=== PATIENT | male | born 1960 | race Hispanic/Latino ===

== ENCOUNTER → 2020-03-06 | Outpatient (CLI) | payer BC, OTHER ==
[~2020-03-06] MED LIST: DIATRIZOATE MEGL/DIATRIZOA SOD 30 ML BTL PO ONE; IOPAMIDOL 370 MG/ML 200 ML INFUS..BTL INJ ONE; SODIUM CHLORIDE 0.9% 50ML 50 ML ONE
--- NOTE | 2020-03-06 17:10 | Diagnostic Imaging Report ---
EXAM: CHEST 2 VIEWS DATE: 03/06/2020 4:30 PM INDICATION: Colon cancer COMPARISON: None FINDINGS: The trachea is midline. The lungs are symmetrically expanded without evidence for large focal consolidation, pneumothorax, or significant pleural effusion. The cardiomediastinal silhouette and pulmonary vasculature are within normal limits. Atherosclerotic calcifications are noted within the thoracic aorta. No acute osseous abnormality is identified. The surrounding soft tissues are unremarkable. IMPRESSION: No acute cardiopulmonary process identified. Signed by: Dr. Evaristo Tobin MD on 03/06/2020 5:06 PM
[2020-03-06 17:17] LABS: BASOPHILS # (AUTO) 0.1 (0.0-0.1); EOSINOPHILS # (AUTO) 0.3 (0.0-0.4); EOSINOPHILS % 4.3 % (0.0-6.0); HEMATOCRIT 46.5 % (38.2-49.6); HEMOGLOBIN 14.8 g/dL (14.0-18.0); LYMPHOCYTES # (AUTO) 1.8 (1.0-3.2); LYMPHOCYTES % 23.5 % (18.0-39.1); MEAN CORPUSCULAR HEMOGLOBIN 26.7 pg (28-32); MEAN CORPUSCULAR HGB CONC 31.8 g/dL (31-35); MEAN CORPUSCULAR VOLUME 83.9 fL (81-99); MONOCYTES # (AUTO) 0.9 (0.2-0.8); MONOCYTES % 11.6 % (4.4-11.3); NEUTROPHILS # (AUTO) 4.5 (2.1-6.9); NEUTROPHILS % 59.1 % (38.7-80.0); PLATELET COUNT 369 x10e3/uL (140-360); RED BLOOD COUNT 5.54 x10e6/uL (4.3-5.7); RED CELL DISTRIBUTION WIDTH 14.7 % (11.7-14.4)
[2020-03-06 17:28] LABS: INR 0.95; PROTHROMBIN TIME 13.2 seconds (11.9-14.5)
[2020-03-06 17:29] LABS: PARTIAL THROMBOPLASTIN TIME 31.5 seconds (23.8-35.5)
[2020-03-06 17:34] LABS: ANION GAP 15.9 mmol/L (8-16); BLOOD UREA NITROGEN 9 mg/dL (7-26); BUN/CREATININE RATIO 10 (6-25); CALCIUM 9.6 mg/dL (8.4-10.2); CARBON DIOXIDE 25 mmol/L (22-29); CHLORIDE 101 mmol/L (98-107); CREATININE, SERUM 0.94 mg/dL (0.72-1.25); EST GLOMERULAR FILTRATION RATE > 60 ML/MIN (60-); GLUCOSE 80 mg/dL (74-118); POTASSIUM 3.9 mmol/L (3.5-5.1); SODIUM 138 mmol/L (136-145)
--- NOTE | 2020-03-06 19:34 | Diagnostic Imaging Report ---
EXAM: CT Abdomen and Pelvis WITH contrast INDICATION: Metastatic colon cancer with bowel obstruction. COMPARISON: CT abdomen/pelvis dated 12/09/2019. MRI of the abdomen on 12/11/2019. TECHNIQUE: Abdomen and pelvis were scanned utilizing a multidetector helical scanner from the lung base to the pubic symphysis after administration of IV contrast. Coronal and sagittal reformations were obtained. Routine protocol was performed. Scan was performed when during portal venous phase. IV CONTRAST: 100 mL of Isovue 370 ORAL CONTRAST: None COMPLICATIONS: None RADIATION DOSE: Total DLP: 931.51 mGy*cm Estimated effective dose: (DLP x 0.015 x size factor) mSv CTDIvol has been reviewed. It is below the limits set by the Radiation Protocol Committee (RPC). Dose modulation, iterative reconstruction, and/or weight based adjustment of the mA/kV was utilized to reduce the radiation dose to as low as reasonably achievable. FINDINGS: LINES and TUBES: None. LOWER THORAX: Unremarkable HEPATOBILIARY: There are multiple hypodense, mildly enhancing irregular shaped masses in the liver. The largest in the right hepatic lobe measures approximately 8.0 x 6.0 cm. Another located in the caudate lobe measures approximately 7.5 x 4.7 cm. Additional smaller nodules are seen throughout the liver, for instance one on the lateral aspect of the right hepatic lobe which measures 2.7 x 2.8 cm. No biliary ductal dilation. GALLBLADDER: No radio-opaque stones or sludge. No wall thickening. SPLEEN: No splenomegaly. PANCREAS: No focal masses or ductal dilatation. ADRENALS: No adrenal nodules KIDNEYS/URETERS: Kidneys enhance symmetrically. No hydronephrosis. There is a small exophytic hypodensity in the midpole of the right kidney, too small to characterize by CT. No stones. GI TRACT: There is circumferential wall thickening of the distal sigmoid colon with pericolonic fat stranding and multiple prominent adjacent lymph nodes, the largest measuring up to 1.2 cm (series 2 image 71). The remainder of the large bowel and small bowel are normal. No abnormal distention or evidence of bowel obstruction. Appendix is normal. PELVIC ORGANS/BLADDER: Unremarkable. LYMPH NODES: There are multiple prominent mayur hepatis and paracaval lymph nodes. There are multiple enlarged lymph nodes in the thickened sigmoid colon described above. VESSELS: The distal thoracic aorta takes a tortuous course. The abdominal aorta and its major abdomen and pelvic branches have normal enhancement with mild atherosclerotic calcification. PERITONEUM / RETROPERITONEUM: No free air or fluid. BONES: Unremarkable. SOFT TISSUES: Unremarkable. IMPRESSION: 1. Circumferential wall thickening of the distal sigmoid colon which likely represents area of known colon cancer. Adjacent pericolonic fat stranding likely reflects reactive changes. Prominent mesenteric lymph nodes, mayur hepatis and paracaval lymph nodes likely reflect metastasis. No evidence of bowel obstruction. 2. Multiple hypodense, mildly enhancing irregular shaped masses in the liver which likely represent metastatic lesions. Signed by: Tristin Finnegan MD on 03/06/2020 7:31 PM
== END ==
LOC: CT 16:22
PROVIDERS: ATTEND Surgery
DX: C78.5 Secondary malignant neoplasm of large intestine and rectum (principal); K56.609 Unspecified intestinal obstruction, unspecified as to partial versus complete obstruction
CPT/HCPCS: 36415; 71046; 74177; 80048; 85025; 85610; 85730; 93005; Q9967

== ENCOUNTER 2020-03-18 05:52 | Inpatient (IN) | payer BC, OTHER ==
[~2020-03-18] VITALS: Ht 182.9 cm; Wt 135.8 kg
[~2020-03-18 05:52] MED LIST changes: +AMLODIPINE BESYL5 MG PO; -DIATRIZOATE MEGL/DIATRIZOA SOD 30 ML BTL PO ONE; +ESIDRIX25 MG PO; -IOPAMIDOL 370 MG/ML 200 ML INFUS..BTL INJ ONE; +LEVOTHYROXINE50 MCG PO; +LIPITOR10 MG PO; +LOSARTAN POTAS100 MG PO; +METFORMIN HCL500 MG PO; -SODIUM CHLORIDE 0.9% 50ML 50 ML ONE
--- NOTE | 2020-03-18 07:10 | NUR ---
SPIRITUAL CARE - Pre-Surgery Assessment: Pt in bed. Pt's at bedside. Pt reported supportive attention from family and friends. Intervention: [employer]ing Services Project Manager provided pastoral presence, hospitality, and sympathetic listening. Acquainted pt with availability of sanitation lead while hospitalized. Outcome: Pt expressed appreciation for visit. No need for follow up indicated at this time. [facility] Spiritual [facility] Department O: [phone]
[2020-03-18] MEDS ORDERED: ONDANSETRON HCL INJ 2MG/ML 2ML 2 MG/ML VIAL IV PRN (12:00)
[2020-03-18] MEDS: SODIUM CHLORIDE 0.9% 250ML IRRIG IR SCH ×3 (12:00→19:57)
[2020-03-18] MEDS ORDERED: KETOROLAC TROMETHAMINE 30 MG/ML VIAL IV PRN (12:00)
[2020-03-18] MEDS ORDERED: ACETAMINOPHEN 1000 MG/100 ML IV PRN (12:00)
[2020-03-18] MEDS ORDERED: NALOXONE HCL INJ 0.4 MG/ML AMP IV PRN (12:00)
[2020-03-18] MEDS: INSULIN REGULAR, HUMAN 100 UNIT/1 ML 3ML VIAL SQ SCH ×2 (12:00→18:00)
[2020-03-18] MEDS ORDERED: FENTANYL CITRATE/PF 100MCG/2 ML INJ ONE ×2 (12:07→19:03)
[2020-03-18] MEDS: HYDROMORPHONE 0.2MG/ML-SOD CHL 30ML PCA SYRINGE IV PRN (12:10)
--- OUTSIDE RECORDS SUMMARY | 2020-03-18 12:55 | XMS REPORT | Continuity of Care Document ---
Author Author Faviola Mati [facility] Address Unknown Phone Unavailable Care Team Providers Care Information Support Project Manager Name Role Phone Avanz[employer] Information [place] Unavailable Un available Problems Problem Status Onset Date Classification Date Reported Comments Source LOW BP Active 12/09/2019 [facility] FEVER, HYPOTENSION, ELENITA, SINUS TACHYCARD Active 12/09/2019 [facility] FEVER, UNSPECIFIED Active [facility] HYPOTENSION, UNSPECIFIED Active [facility] ACUTE KIDNEY FAILURE, UNSPECIFIED Active [facility] Medications Medication Details Route Status Patient Instructions Ordering Provider Order Date Source cefTRIAXone 2 g injection 2 gm , IV, Q24H, X 18 day, # 18 ea, 0 Refill(s), other Active 12/20/2019 [facility] Miralax Notes: Dissolve in 8 o z of water or juice. (Same as: Miralax) No Longer Active 12/20/2019 [facility] Rocephin + sterile water 20 mL Notes: (Same As: Rocephin). Use with 100 mL NS and infuse over 30 min MEDICATION WASTE Product Size: 2000 mg Product Wasted: ___ mg Inactive 12/19/2019 [facility] POLYETHYLENE GLYCOL 3350 142 MG/ML Oral Solution [Miralax] 17 gm, PO, Daily, PRN Constipation, # 52 7 gm, 0 Refill(s), [id number] Active 12/19/2019 [facility] Acetaminophen 300 MG / Codeine Phosphate 30 MG Oral Tablet 1 tab, PO, Q6H, PRN Pain Score 7-10, X 3 day, # 12 tab, 0 Refill(s) Active 12/19/2019 [facility] Lisinopril Notes: (Same as: Pr inivil, Zestril) No Longer Active 12/18/2019 [facility] magnesium citrate 58.2 MG/ML Oral Solution Notes: (Same as: Citrate of Magnesia) Concentration: 1.745 gm / 30 mL Inactive 12/16/2019 [facility] Docusate 100 mg, Route: PO, BI D, Dosing Weight 145.455, kg, Start date: 12/16/19 9:00:00 CDT, Duration: 30 day, Stop date: 01/14/20 17:00:00 CDT No Longer Active 12/16/2019 [facility] Amlodipine Notes: (Same as: No rvasc) Inactive 12/15/2019 [facility] Ceftriaxone Notes: (Same As: R ocephin). Use with 100 mL NS and infuse over 30 min MEDICATION WASTE Product Size: 2000 mg Product Wasted: ___ mg No Longer Active 12/14/2019 [facility] Hydralazine Notes: (Same as: A presoline) Push over 5 minutes No Longer Active 12/12/2019 [facility] Amlodipine Notes: (Same as: No rvasc) No Longer Active 12/12/2019 [facility] Ativan Notes: (Same as: Ativan) Inactive 12/11/2019 [facility] Zosyn Notes: (Same as: Zosyn) Dosing based on Piperacillin component MEDICATION WASTE Product Size: 3375 mg Product Wasted: ___ mg No Longer Active 12/11/2019 [facility] Rocephin + sterile water 10 mL Notes: (Same As: Rocephin). Use with 100 mL NS and infuse over 30 min MEDICATION WASTE Product Size: 1000 mg Product Wasted: ___ mg No Longer Active 12/11/2019 [facility] Dulcolax Laxative 10 mg, 2 tab , Route: PO, Drug form: ECTAB, ONCE, Dosing Weight 145.455, kg, Start date: 12/10/19 21:00:00 CDT, Stop date: 12/10/19 21:00:00 CDT, 0 Inactive 12/11/2019 [facility] Docusate Notes: (Same as: Cola ce) (Do Not Crush) No Longer Active 12/11/2019 [facility] sennosides, SENIOR CARE Notes: (Same a s: Senokot) No Longer Active 12/11/2019 [facility] Acetaminophen 325 MG / Hydrocodone Александр trate 5 MG Oral Tablet [Campbell 5/325] Notes: (Same as: Campbell 325/5) Do not ex ceed 4gm/day of acetaminophen. No Longer Activ e 12/10/2019 [facility] Morphine Notes: (Same as:MORPh ine Sulfate) No Longer Active 12/10/2019 [facility] Cipro Notes: Do not refrigerate No Longer Active 12/10/2019 [facility] Allopurinol Notes: (Same as: Z yloprim) No Longer Active 12/10/2019 [facility] atorvastatin Notes: (Same as: Lipitor) No Longer Active 12/10/2019 [facility] Fenofibrate 48 MG Oral Tablet Notes: (Same as: Tricor) No Longer Active 12/10/2019 [facility] Levothroid Notes: Take 1 hour before or 2 hours after meal; Enteral feeds may interefere with the absorption of this medication.(Same as:Levothroid, Synthroid) No Longer Active 12/10/2019 [facility] Enoxaparin Notes: (Same as: Lo venox) No Longer Active 12/10/2019 [facility] Dextrose 50% Syringe (D50W) 12 .5 gm, 25 mL, Route: IVP, Drug Form: INJ, Dosing Weight 145.455, kg, PRN, PRN Blood Glucose Results, Start date: 12/10/19 0:36:00 CDT, Duration: 30 day, Stop date: 01/09/20 0:35:00 CDT, 0 No Longer Active 12/10/2019 [facility] Glucagon 1 mg, Route: IM, Drug form: PDR/INJ, PRN, Dosing Weight 145.455, kg, PRN Blood Glucose Results, Start date: 12/10/19 0:36:00 CDT, Duration: 30 day, Stop date: 01/09/20 0:35:00 CDT, 0 No Longer Active 12/10/2019 [facility] Insulin Lispro Notes: (Same as : Humalog) Roll in palms of hands gently; Do not shake vigorously. WASTE: F/P - Black; E - Municipal Trash Bin Stable for 28 days at room temperature. Expires in days from Date No Longer Active 12/10/2019 [facility] Triamcinolone Acetonide 1 MG/ML Topical Cream Notes: (triamcinolone acetonide 0.1% 15 gm top CRM) (Same As: Kenalog) No Longer Active 12/10/2019 [facility] Sodium Chloride 0.9% IV 1,000 mL 1,000 mL, Rate: 125 ml/hr, Infuse over: 8 hr, Route: IV, Dosing Weight 145.455 kg, Total Volume: 1,000, Start date: 12/10/19 0:33:00 CDT, Duration: 30 day, Stop date: 01/09/20 0:32:00 CDT, 2.75, m2, 0 No Longer Active 12/10/2019 [facility] Saline Flush 0.9% Notes: (Same as: BD Posiflush) No Longer Active 12/10/2019 [facility] Metronidazole Notes: (Same as: Ulises) Avoid alcohol. No Longer Active 12/10/2019 [facility] NS (Bolus) IV 1,000 mL, 1,000 ml/hr, Infuse Over: 1 hr, Route: IV, 1,000, Drug form: INJ, ONCE, Priority: STAT, Dosing Weight 145.455 kg, Start date: 12/10/19 0:28:00 CDT, Stop date: 12/10/19 0:28:00 CDT, 0 Inactive 12/10/2019 [facility] Ondansetron Notes: (Same as: [place] fuentes) MEDICATION WASTE Product Size: 4 mg Product Wasted: ___ mg No Longer Active 12/10/2019 [facility] Acetaminophen Notes: Do not ex ceed 4 gm/day. (Same as: Tylenol) No Longer Active 12/10/2019 [facility] Metronidazole Notes: (Same as: Ulises) Avoid alcohol. No Longer Active 12/10/2019 [facility] Azithromycin Notes: (Same As: Zithromax IV) No Longer Active 12/10/2019 [facility] Ceftriaxone Notes: (Same As: Harry barrow). Use with 100 mL NS and infuse over 30 min MEDICATION WASTE Product Size: 1000 mg Product Wasted: ___ mg No Longer Active 12/10/2019 [facility] Zofran 4 mg, Route: IVP, Drug form: INJ, ONCE, Dosing Weight 145.455, kg, Priority: STAT, Start date: 12/09/19 22:54:00 CDT, Stop date: 12/09/19 22:54:00 CDT Inactive 12/10/2019 [facility] Acetaminophen 1,000 mg, 2 tab, Route: PO, Drug form: TAB, ONCE, Dosing Weight 145.455, kg, Start date: 12/09/19 22:51:00 CDT, Stop date: 12/09/19 22:51:00 CDT, 0 No Longer Active 12/10/2019 [facility] Tylenol 1,000 mg, 2 tab, Route : PO, Drug form: TAB, ONCE, Dosing Weight 145.455, kg, Priority: STAT, Start date: 12/09/19 22:45:00 CDT, Stop date: 12/09/19 22:45:00 CDT, 0 Inactive 12/10/2019 [facility] NS (Bolus) IV 1,000 mL, 1,000 ml/hr, Infuse Over: 1 hr, Route: IV, 1,000, Drug form: INJ, ONCE, Priority: STAT, Dosing Weight 145.455 kg, Start date: 12/09/19 22:32:00 CDT, Stop date: 12/09/19 22:32:00 CDT, 0 Inactive 12/10/2019 [facility] NS 1,000 mL 1,000 mL, Rate: 10 0 ml/hr, Infuse over: 10 hr, Route: IV, Dosing Weight 145.455 kg, Total Volume: 1,000, Start date: 12/09/19 20:16:00 CDT, Duration: 30 day, Stop date: 01/08/20 20:15:00 CDT, 2.75, m2, 0 No Longer Active 12/10/2019 [facility] Saline Flush 0.9% Notes: (Same as: BD Posiflush) No Longer Active 12/09/2019 [facility] Sodium Chloride 0.9% (Bolus) IV 1,000 mL, 1000 ml/hr, Infuse Over: 1 hr, Route: IV, 1,000, Drug form: INJ, ONCE, Priority: STAT, Dosing Weight 145.455 kg, Start date: 12/09/19 18:51:00 CDT, Stop date: 12/09/19 18:51:00 CDT, 0 Inactive 12/09/2019 [facility] Metformin hydrochloride 500 MG Oral Tablet 500 mg = 1 tab, PO, Daily, 0 Refill(s) Active 12/09/2019 [facility] Fenofibrate 48 MG Oral Tablet 48 mg = 1 tab, PO, Daily, 0 Refill(s) Active 12/09/2019 [facility] allopurinol 300 mg oral tablet 300 mg = 1 tab, PO, Daily, 0 Refill(s) Active 12/09/2019 [facility] Triamcinolone Acetonide 1 MG/ML Topical Cream 1 appl, TOP, BID, PRN Rash, 0 Refill(s) Active 12/09/2019 [facility] Levothroid 50 mcg (0.05 mg) oral tablet 50 microgram = 1 tab, PO, Daily, 0 Refill(s) Active 12/09/2019 [facility] atorvastatin 40 mg oral tablet 40 mg = 1 tab, PO, Daily, 0 Refill(s) Active 12/09/2019 [facility] amLODIPine 5 mg oral tablet 5 mg = 1 tab, PO, Daily, 0 Refill(s) Active 12/09/2019 [facility] losartan 50 mg oral tablet See Instructions, 1 tab PO Daily, 0 Refill(s) Active 12/09/2019 [facility] hydrochlorothiazide 12.5 mg oral tablet 12.5 mg = 1 tab, PO, Daily, 0 Refill(s) Active 12/09/2019 [facility] Allergies, Adverse Reactions, Alerts No Known Medication Allergies Immunizations No Data Provided for This Section Results Order Name Results Value Reference Range Date Interpretation Comments Source CHEM PANEL LDH 329 98 - 192 12/19/2019 [facility] CHEM PANEL Glucose Lvl 87 70 - 99 12/19/2019 [facility] CHEM PANEL BUN 9 7 - 22 12/19/2019 [facility] CHEM [facility] Creatinine Lvl 0.80 0.50 - 1.40 12/19/2019 [facility] CHEM PANEL Sodium Lvl 139 135 - 145 12/19/2019 [facility] CHEM PANEL Potassium Lvl 4.0 3.5 - 5.1 12/19/2019 [facility] CHEM PANEL Chloride Lvl 107 95 - 109 12/19/2019 [facility] CHEM PANEL CO2 27 24 - 32 12/19/2019 [facility] CHEM PANEL Calcium Lvl 9.0 8.5 - 10.5 12/19/2019 [facility] CHEM PANEL AGAP 9.0 10.0 - 20.0 12/19/2019 [facility] CHEM PANEL eGFR 99 12/19/2019 Result Comment: The eGFR is calculated using the CKD-EPI formula. In most young, healthy individuals the eGFR will be >90 mL/min/1.73m2. The eGFR declines with age. An eGFR of 60-89 may be normal in some populations, particularly the elderly, for whom the CKD-EPI formula has not been extensively validated. Use of the eGFR is not recommended in the following populations:

Individuals with unstable creatinine concentrations, including patients and those with serious co-morbid conditions.

Patients with extremes in muscle mass or diet.

The data above are obtained from the National Kidney Disease Education Program (NKDEP) which additionally recommends that when the eGFR is used in patients with extremes of body mass index for purposes of drug dosing, the eGFR should be multiplied by the estimated BMI. [facility] CHEM PANEL Magnesium Lvl 2.4 1.8 - 2.4 12/19/2019 [facility] HEMATOLOGY Hgb 13.9 14.0 - 18.0 12/19/2019 [facility] HEMATOLOGY Hct 42.9 42.0 - 54.0 12/19/2019 [facility] CHEM PANEL Glucose Lvl 92 70 - 99 12/18/2019 [facility] CHEM PANEL BUN 10 7 - 22 12/18/2019 [facility] CHEM PANEL Creatinine Lvl 0.85 0.50 - 1.40 12/18/2019 [facility] CHEM PANEL Sodium Lvl 138 135 - 145 12/18/2019 [facility] CHEM PANEL Potassium Lvl 3.9 3.5 - 5.1 12/18/2019 [facility] CHEM PANEL Chloride Lvl 105 95 - 109 12/18/2019 [facility] CHEM PANEL CO2 27 24 - 32 12/18/2019 [facility] CHEM PANEL Calcium Lvl 8.8 8.5 - 10.5 12/18/2019 [facility] CHEM PANEL AGAP 9.9 10.0 - 20.0 12/18/2019 [facility] CHEM PANEL eGFR 97 12/18/2019 Result Comment: The eGFR is calculated using the CKD-EPI formula. In most young, healthy individuals the eGFR will be >90 mL/min/1.73m2. The eGFR declines with age. An eGFR of 60-89 may be normal in some populations, particularly the elderly, for whom the CKD-EPI formula has not been extensively validated. Use of the eGFR is not recommended in the following populations:

Individuals with unstable creatinine concentrations, including patients and those with serious co-morbid conditions.

Patients with extremes in muscle mass or diet.

The data above are obtained from the National Kidney Disease Education Program (NKDEP) which additionally recommends that when the eGFR is used in patients with extremes of body mass index for purposes of drug dosing, the eGFR should be multiplied by the estimated BMI. [facility] CHEM PANEL LDH 342 98 - 192 12/18/2019 [facility] CHEM PANEL LDH 336 98 - 192 12/17/2019 [facility] WBC 7.8 3.7 - 10.4 12/17/2019 [facility] RBC 4.81 4.70 - 6.10 12/17/2019 [facility] HEMATOLOGY Hgb 13.7 14.0 - 18.0 12/17/2019 [facility] HEMATOLOGY Hct 41.8 42.0 - 54.0 12/17/2019 [facility] MCV 86.8 80.0 - 94.0 12/17/2019 [facility] MCH 28.4 27.0 - 31.0 12/17/2019 [facility] MCHC 32.8 32.0 - 36.0 12/17/2019 [facility] RDW 15.1 11.5 - 14.5 12/17/2019 [facility] Platelet 416 133 - 450 12/17/2019 [facility] MPV 7.5 7.4 - 10.4 12/17/2019 [facility] HEMATOLOGY Segs 61.2 45.0 - 75.0 12/17/2019 [facility] Lymphocytes 22.6 20.0 - 40.0 12/17/2019 [facility] HEMATOLOGY Monocytes 11.4 2.0 - 12.0 12/17/2019 [facility] HEMATOLOGY Eosinophils 3.7 0.0 - 4.0 12/17/2019 [facility] HEMATOLOGY Basophils 1.1 0.0 - 1.0 12/17/2019 [facility] HEMATOLOGY Neutrophils # 4.8 1.5 - 8.1 12/17/2019 [facility] HEMATOLOGY Lymphocytes # 1.8 1.0 - 5.5 12/17/2019 [facility] Monocytes # 0.9 0.0 - 0.8 12/17/2019 [facility] Eosinophils # 0.3 0.0 - 0.5 12/17/2019 [facility] Basophils # 0.1 0.0 - 0.2 12/17/2019 [facility] CHEM PANEL Glucose Lvl 92 70 - 99 12/14/2019 [facility] CHEM PANEL BUN 8 7 - 22 12/14/2019 [facility] CHEM PANEL Creatinine Lvl 0.99 0.50 - 1.40 12/14/2019 [facility] CHEM PANEL Sodium Lvl 139 135 - 145 12/14/2019 [facility] CHEM PANEL Potassium Lvl 4.2 3.5 - 5.1 12/14/2019 [facility] CHEM PANEL Chloride Lvl 105 95 - 109 12/14/2019 [facility] CHEM PANEL CO2 29 24 - 32 12/14/2019 [facility] CHEM PANEL Calcium Lvl 9.7 8.5 - 10.5 12/14/2019 [facility] CHEM PANEL AGAP 9.2 10.0 - 20.0 12/14/2019 [facility] CHEM PANEL eGFR 84 12/14/2019 Result Comment: The eGFR is calculated using the CKD-EPI formula. In most young, healthy individuals the eGFR will be >90 mL/min/1.73m2. The eGFR declines with age. An eGFR of 60-89 may be normal in some populations, particularly the elderly, for whom the CKD-EPI formula has not been extensively validated. Use of the eGFR is not recommended in the following populations:

Individuals with unstable creatinine concentrations, including patients and those with serious co-morbid conditions.

Patients with extremes in muscle mass or diet.

The data above are obtained from the National Kidney Disease Education Program (NKDEP) which additionally recommends that when the eGFR is used in patients with extremes of body mass index for purposes of drug dosing, the eGFR should be multiplied by the estimated BMI. [facility] Gram Stain Report No Wbc'S Or Org anisms Seen 12/13/2019 [facility] Culture: Aspirate/Body Fluid/Tissue No Growth 12/13/2019 [facility] Gram Stain Report No Organisms Se en Few WBC's 12/13/2019 [facility] Culture: Aspirate/Body Fluid/Tissue No Growth 12/13/2019 [facility] ANEMIA STUDY Ferritin Lvl 142 22 - 275 12/11/2019 [facility] ANEMIA STUDY Iron 28 45 - 160 12/11/2019 [facility] ANEMIA STUDY TIBC 344 228 - 428 12/11/2019 [facility] ANEMIA STUDY UIBC 316 110 - 370 12/11/2019 [facility] ANEMIA STUDY % Satur Fe 8 12 - 57 12/11/2019 [facility] CHEM PANEL B/C Ratio 11 6 - 25 12/11/2019 [facility] CHEM PANEL Total Protein 6.8 6.4 - 8.4 12/11/2019 [facility] CHEM PANEL Albumin Lvl 2.6 3.5 - 5.0 12/11/2019 [facility] CHEM PANEL Globulin 4.2 2.7 - 4.2 12/11/2019 [facility] CHEM PANEL A/G Ratio 0.6 0.7 - 1.6 12/11/2019 [facility] CHEM PANEL ALT 25 0 - 65 12/11/2019 [facility] CHEM PANEL AST 21 0 - 37 12/11/2019 [facility] CHEM PANEL Alk Phos 66 39 - 136 12/11/2019 [facility] CHEM PANEL Bili Total 0.6 0.2 - 1.3 12/11/2019 [facility] CHEM PANEL Magnesium Lvl 2.1 1.8 - 2.4 12/11/2019 [facility] HEMATOLOGY Segs 74.1 45.0 - 75.0 12/11/2019 [facility] HEMATOLOGY Lymphocytes 9.7 20.0 - 40.0 12/11/2019 [facility] HEMATOLOGY Monocytes 13.7 2.0 - 12.0 12/11/2019 [facility] HEMATOLOGY Eosinophils 2.0 0.0 - 4.0 12/11/2019 [facility] HEMATOLOGY Basophils 0.5 0.0 - 1.0 12/11/2019 [facility] HEMATOLOGY Neutrophils # 10.0 1.5 - 8.1 12/11/2019 [facility] HEMATOLOGY Lymphocytes # 1.3 1.0 - 5.5 12/11/2019 [facility] HEMATOLOGY Monocytes # 1.8 0.0 - 0.8 12/11/2019 [facility] HEMATOLOGY Eosinophils # 0.3 0.0 - 0.5 12/11/2019 [facility] HEMATOLOGY Basophils # 0.1 0.0 - 0.2 12/11/2019 [facility] HEMATOLOGY WBC 13.4 3.7 - 10.4 12/11/2019 [facility] HEMATOLOGY RBC 4.24 4.70 - 6.10 12/11/2019 [facility] HEMATOLOGY Hgb 12.1 14.0 - 18.0 12/11/2019 [facility] HEMATOLOGY Hct 37.1 42.0 - 54.0 12/11/2019 [facility] HEMATOLOGY MCV 87.6 80.0 - 94.0 12/11/2019 [facility] HEMATOLOGY MCH 28.6 27.0 - 31.0 12/11/2019 [facility] HEMATOLOGY MCHC 32.6 32.0 - 36.0 12/11/2019 [facility] HEMATOLOGY RDW 15.0 11.5 - 14.5 12/11/2019 [facility] HEMATOLOGY Platelet 318 133 - 450 12/11/2019 [facility] HEMATOLOGY MPV 8.0 7.4 - 10.4 12/11/2019 [facility] HEMATOLOGY Segs 86.5 45.0 - 75.0 12/10/2019 [facility] HEMATOLOGY Lymphocytes 5.3 20.0 - 40.0 12/10/2019 [facility] HEMATOLOGY Monocytes 8.0 2.0 - 12.0 12/10/2019 [facility] HEMATOLOGY Basophils 0.2 0.0 - 1.0 12/10/2019 [facility] HEMATOLOGY Neutrophils # 16.8 1.5 - 8.1 12/10/2019 [facility] HEMATOLOGY Lymphocytes # 1.0 1.0 - 5.5 12/10/2019 [facility] HEMATOLOGY Monocytes # 1.6 0.0 - 0.8 12/10/2019 [facility] HEMATOLOGY WBC 19.4 3.7 - 10.4 12/10/2019 [facility] HEMATOLOGY RBC 4.44 4.70 - 6.10 12/10/2019 [facility] HEMATOLOGY MCV 87.3 80.0 - 94.0 12/10/2019 [facility] HEMATOLOGY MCH 27.9 27.0 - 31.0 12/10/2019 [facility] HEMATOLOGY MCHC 32.0 32.0 - 36.0 12/10/2019 [facility] HEMATOLOGY RDW 14.9 11.5 - 14.5 12/10/2019 [facility] HEMATOLOGY Platelet 308 133 - 450 12/10/2019 [facility] HEMATOLOGY MPV 7.9 7.4 - 10.4 12/10/2019 [facility] SPECIAL CHEMISTRY Hgb A1C 6.1 <=5.6 % 12/10/2019 [facility] TUMOR MARKERS AFP 1.3 0.0 - 11.0 12/10/2019 [facility] TUMOR MARKERS CEA 410.9 0.0 - 3.0 12/10/2019 [facility] U Amph Scr Nega tive *NA* (12/10/19 12:34 AM) Negative 12/10/2019 [facility] U Jennifer Scr Nega tive *NA* (12/10/19 12:34 AM) Negative 12/10/2019 [facility] U Benzodiaz Scr Nega tive *NA* (12/10/19 12:34 AM) Negative 12/10/2019 [facility] U Cocaine Scr Nega tive *NA* (12/10/19 12:34 AM) Negative 12/10/2019 [facility] U Cannab Scr Nega tive *NA* (12/10/19 12:34 AM) Negative 12/10/2019 [facility] U Opiate Scr Nega tive *NA* (12/10/19 12:34 AM) Negative 12/10/2019 [facility] U Phencyclidine Scr Nega tive *NA* (12/10/19 12:34 AM) Negative 12/10/2019 [facility] UDS Note See Note (12/10/19 12:34 AM) 12/10/2019 [facility] URINE AND STOOL UA Turbidity Slight *ABN* (12/10/19 12:34 AM) Clear 12/10/2019 [facility] URINE AND STOOL UA Spec Grav 1.021 <=1.030 12/10/2019 [facility] URINE AND STOOL UA pH 5.0 5.0 - 8.0 12/10/2019 [facility] URINE AND STOOL UA Protein 30 mg/dL Negative mg/dL 12/10/2019 [facility] URINE AND STOOL UA Glucose Negative mg/dL Negative mg/dL 12/10/[address] [facility] [address] URINE AND STOOL UA Ketones Negative mg/dL Negative mg/dL 12/10/[address] [facility] [address] URINE AND STOOL UA Bili Negative *NA* (12/10/19 12:34 AM) Negative 12/10/2019 [facility] URINE AND STOOL UA Blood Negative (12/10/19 12:34 AM) Negative 12/10/2019 [facility] URINE AND STOOL UA Urobilinogen 2.0 0.1 - 1.0 12/10/2019 [facility] URINE AND STOOL UA Nitrite Negative (12/10/19 12:34 AM) Negative 12/10/2019 [facility] URINE AND STOOL UA Leuk Est Negative (12/10/19 12:34 AM) Negative 12/10/2019 [facility] URINE AND STOOL UA Sq Epi Occasional /LPF Few /LPF 12/10/2019 [facility] URINE AND STOOL UA WBC 1 0 - 5 12/10/2019 [facility] URINE AND STOOL UA RBC 3 0 - 2 12/10/2019 [facility] URINE AND STOOL UA Bacteria Occasional /HPF None Seen /HPF 12/10/[address] [facility] [address] URINE AND STOOL UA Hyal Cast 18 0 - 2 12/10/2019 [facility] URINE AND STOOL UA Color Kimberly 12/10/2019 [facility] URINE CHEM U Sodium 6 12/10/2019 [facility] URINE CHEM U Creatinine 287.00 12/10/2019 [facility] IMMUNOLOGY Coronavirus (COVID-19) NA A Not Detected (12/09/19 10:51 PM) Not Detected 12/10/2019 [facility] S. aureus Not Detected (12/09/19 8:15 PM) Not Detected 12/10/2019 [facility] S. epidermidis Not Detected (12/09/19 8:15 PM) Not Detected 12/10/2019 [facility] S. lugdunensis Not Detected (12/09/19 8:15 PM) Not Detected 12/10/2019 [facility] S. anginosus gr p Detected *ABN* (12/09/19 8:15 PM) Not Detected 12/10/2019 [facility] S. agalactiae Not Detected (12/09/19 8:15 PM) Not Detected 12/10/2019 [facility] S. pneumoniae Not Detected (12/09/19 8:15 PM) Not Detected 12/10/2019 [facility] S. pyogenes Not Detected (12/09/19 8:15 PM) Not Detected 12/10/2019 [facility] E. faecalis Not Detected (12/09/19 8:15 PM) Not Detected 12/10/2019 [facility] E. faecium Not Detected (12/09/19 8:15 PM) Not Detected 12/10/2019 [facility] Staphylococcus spp. Not Detected (12/09/19 8:15 PM) Not Detected 12/10/2019 [facility] Streptococcus s pp. Detected *ABN* (12/09/19 8:15 PM) Not Detected 12/10/2019 [facility] Listeria spp. Not Detected (12/09/19 8:15 PM) Not Detected 12/10/2019 [facility] mecA Methicilli n Resistance Not Detected (12/09/19 8:15 PM) Not Detected 12/10/2019 [facility] Joaquin Vancomycin Resistance Not Detected (12/09/19 8:15 PM) Not Detected 12/10/2019 [facility] vanB Vancomycin Resistance Not Detected (12/09/19 8:15 PM) Not Detected 12/10/2019 [facility] CARDIAC ENZYMES Total CK 133 12 - 191 12/10/2019 [facility] CARDIAC ENZYMES Troponin-I <0.02 0.00 - 0.40 12/10/2019 [facility] CHEM PANEL Total Protein 8.3 6.4 - 8.4 12/10/2019 [facility] CHEM PANEL Albumin Lvl 3.1 3.5 - 5.0 12/10/2019 [facility] CHEM PANEL ALT 32 0 - 65 12/10/2019 [facility] CHEM PANEL AST 27 0 - 37 12/10/2019 [facility] CHEM PANEL Alk Phos 84 39 - 136 12/10/2019 [facility] CHEM PANEL Bili Total 1.0 0.2 - 1.3 12/10/2019 [facility] CHEM PANEL B/C Ratio 10 6 - 25 12/10/2019 [facility] CHEM PANEL Globulin 5.2 2.7 - 4.2 12/10/2019 [facility] CHEM PANEL A/G Ratio 0.6 0.7 - 1.6 12/10/2019 [facility] CHEM PANEL Magnesium Lvl 2.2 1.8 - 2.4 12/10/2019 [facility] CHEM PANEL Phosphorus 2.6 2.5 - 4.5 12/10/2019 [facility] CHEM PANEL Lactic Acid Lvl 1.2 0.5 - 2.2 12/10/2019 [facility] HEMATOLOGY PT 14.6 12.0 - 14.7 12/10/2019 [facility] HEMATOLOGY INR 1.13 0.85 - 1.17 12/10/2019 [facility] HEMATOLOGY PTT 27.9 22.9 - 35.8 12/10/2019 [facility] HEMATOLOGY D-Dimer 2.09 12/10/2019 [facility] HEMATOLOGY RBC Morph Zhane l (12/09/19 7:34 PM) Normal 12/10/2019 [facility] HEMATOLOGY Plt Morph Zhane l (12/09/19 7:34 PM) Normal 12/10/2019 [facility] HEMATOLOGY Eosinophils 0.1 0.0 - 4.0 12/10/2019 [facility] HEMATOLOGY Basophils # 0.1 0.0 - 0.2 12/10/2019 [facility] Pathology Reports No Data Provided for This Section Diagnostic Reports Report Value Date Source Chest 1 v for Placement DX PRO CEDURE INFORMATION: Exam: XR Chest, 1 View Exam date and time: 12/17/2019 9:20 AM Age: 59 years old Clinical indication: Device placement; Additional info: Line placement/chest 1 view for line placement TECHNIQUE: Imaging protocol: XR of the chest Views: 1 view. COMPARISON: CHEST 1VIEW DX 12/09/2019 6:50 PM FINDINGS: Tubes, catheters and devices: Right PICC line tip is in the expected region of the SVC/right atrial junction. Lungs: Slight atelectasis left lung base. Decreased lung volumes. No other focal infiltrates within the lungs and no edema. Pleural space: No pleural effusions and no pneumothorax. Heart/Mediastinum: Enlarged cardiac silhouette and mediastinal structures are stable including aortic calcification. Bones/joints: Degenerative changes are seen about the thoracic spine. IMPRESSION: 1. Right PICC line tip in expected regio n of the SVC/right atrial junction. 2. Slight atelectasis left lung base. Eric Nails MD On 12/17/2019 09:34:49; [id number] 12/17/2019 [facility] liver VR Addendum: The pathology report was reviewed. It is noted the lesion near the dome of the liver which was biopsied was interpreted by the pathologist's as representing adenocarcinoma. Please refer to the biopsy report. Abdullahi Garrison MD On 12/20/2019 11:32:32; [id number] PROCEDURE INFORMATION: Exam: 1. PERCUTANEOUS BIOPSY OF CENTRAL RIGHT HEPATIC LOBE LESION. 2. PERCUTANEOUS DRAINAGE OF HEPATIC ABSC ESS. 3. PERCUTANEOUS BIOPSY OF HEPATIC LESION IN THE UPPER PORTION OF THE LEFT HEPATIC LOBE NEAR THE DOME. Exam date and time: 12/13/2019 9:46 AM Age: 59 years old Clinical indication: Low-density lesions within the liver as described on the recent CT scan and MRI, suspected abscesses. * PROCEDURE: 1. BIOPSY LOW-DENSITY LESION IN THE CENT RAL PORTION OF THE RIGHT HEPATIC LOBE. 2. PERCUTANEOUS DRAINAGE OF HEPATIC ABSC ESS. 3. PERCUTANEOUS BIOPSY OF HEPATIC LESION IN THE UPPER PORTION OF THE LEFT HEPATIC LOBE NEAR THE DOME. * PHYSICIAN PROVIDING SERVICE: Abdullahi Garrison M.D. * HISTORY: Abnormal lesions in the upper portion of the left hepatic lobe near the dome in the central portion of the right hepatic lobe. These were felt to be suspicious for abscesses. The patient was referred for percutaneous drainage and biopsy if indicated. This procedure describes the biopsy and the drainage of the hepatic lesion which was demonstrated to be an abscess in the central portion of the right hepatic lobe. * SEDATION: Intravenous Versed and fentanyl. 1.5 mg of Versed and 100 mcg of fentanyl were utilized. 'Face to face' sedation time: 37 minutes * CONSENT: The procedure, risks, benefits and alternatives were discussed with the patient and written informed consent was obtained. * IMAGING STUDIES REVIEWED: CT scan of the abdomen pelvis of 12/09/2019 and MRI of the abdomen of . * TECHNIQUE: Preliminary CT images were obtained through the upper abdomen the patient in the supine position. A relatively small (approximately 2.6 cm) low-density lesio n in the central portion of the right hepatic lobe was localized the period a suitable the right lateral upper abdominal location for percutaneous biopsy and possible abscess drainage in the right upper quadrant at approximately the mid axillary line for percutaneous drainage was chosen by CT. A generous portion of the right upper quadrant was prepped with ChloraPrep and draped. The insertion site was anesthetized with 1% lidocaine. A 5 mm incision was made a # 11 blade. A 19-gauge needle was carefully advanced into the low-density area in the midportion of the right hepatic lobe utilizing CT guidance. Through this needle, a biopsy of the surrounding area was obtained. Next, the needle was directed into the central portion of the low-density area under CT guidance. A small amount of purulent material was obtained indicating good position within the collection. Repeat CT images demonstrate good position of the needle and tract. A.035 inch Amplatz guidewire was then advanced into the collection without difficulty. The tract was dilated to 10 [place]. A 10-[place] cope loop multipurpose drainag e catheter was then advanced into the collection. 25 cc of purulent material was obtained. A sample was sent for culture. The catheter was then attached to a suction bulb device.. Follow-up CT images demonstrate essentially complete evacuation of the collection without evidence of complication. Next, the larger lesion in the upper portion of the left hepatic lobe near the dome was addressed. The right upper quadrant was re-prepped with ChloraPrep and redraped. A 19 gauge guide needle was advanced into the low-density lesion in the left hepatic lobe. Aspiration was performed utilizing no fluid. Therefore, this did not appear to represent an abscess. Biopsy was then performed through the 19 gauge needle. Several core biopsies were obtained with a 20 gauge Morris-Cut needle. These were placed in formalin for pathology and a sample was also sent for cultures. The needle was then removed. Final CT images of the upper abdomen after both procedures demonstrated no evidence of hemorrhage or other significant complication. CT imaging performed at this location utilizes radiation dose optimization techniques which include one or more of the following: -Automated exposure control. -Adjustment of the mA and/or kV accordin g to patient size. -Use of iterative reconstruction techniq ue. CT Radiation Dose DLP Radiation 2137.21 mGy-cm The patient tolerated the procedure well and suffered no immediate complications. * IMPRESSION: 1. Percutaneous drainage of right hepati c abscess with a 10 [place]er catheter. Approximately 25 mL of purulent material was obtained and a sample sent for culture. 2. Percutaneous biopsy of the liver lyndsey cent to the right hepatic abscess. 3. Percutaneous biopsy of larger lesion in the left hepatic lobe near the dome. An aspiration was performed utilizing no purulent material and therefore this does not appear to represent an abscess at this time. * DISPOSITION: 1. Cultures the and histology are pendin g. 2. The catheter will be attached to a diane ction bulb device. 3. Biopsies are pending. On 12/13/2019 12:09:21; 12/13/2019 [facility] Biopsy liver VR Addendum: The pathology report was reviewed. It is noted the lesion near the dome of the liver which was biopsied was interpreted by the pathologist's as representing adenocarcinoma. Please refer to the biopsy report. Abdullahi Garrison MD On 12/20/2019 11:32:32; [id number] PROCEDURE INFORMATION: Exam: 1. PERCUTANEOUS BIOPSY OF CENTRAL RIGHT HEPATIC LOBE LESION. 2. PERCUTANEOUS DRAINAGE OF HEPATIC ABSC ESS. 3. PERCUTANEOUS BIOPSY OF HEPATIC LESION IN THE UPPER PORTION OF THE LEFT HEPATIC LOBE NEAR THE DOME. Exam date and time: 12/13/2019 9:46 AM Age: 59 years old Clinical indication: Low-density lesions within the liver as described on the recent CT scan and MRI, suspected abscesses. * PROCEDURE: 1. BIOPSY LOW-DENSITY LESION IN THE CENT RAL PORTION OF THE RIGHT HEPATIC LOBE. 2. PERCUTANEOUS DRAINAGE OF HEPATIC ABSC ESS. 3. PERCUTANEOUS BIOPSY OF HEPATIC LESION IN THE UPPER PORTION OF THE LEFT HEPATIC LOBE NEAR THE DOME. * PHYSICIAN PROVIDING SERVICE: Abdullahi Garrison M.D. * HISTORY: Abnormal lesions in the upper portion of the left hepatic lobe near the dome in the central portion of the right hepatic lobe. These were felt to be suspicious for abscesses. The patient was referred for percutaneous drainage and biopsy if indicated. This procedure describes the biopsy and the drainage of the hepatic lesion which was demonstrated to be an abscess in the central portion of the right hepatic lobe. * SEDATION: Intravenous Versed and fentanyl. 1.5 mg of Versed and 100 mcg of fentanyl were utilized. 'Face to face' sedation time: 37 minutes * CONSENT: The procedure, risks, benefits and alternatives were discussed with the patient and written informed consent was obtained. * IMAGING STUDIES REVIEWED: CT scan of the abdomen pelvis of 12/09/2019 and MRI of the abdomen of . * TECHNIQUE: Preliminary CT images were obtained through the upper abdomen the patient in the supine position. A relatively small (approximately 2.6 cm) low-density lesio n in the central portion of the right hepatic lobe was localized the period a suitable the right lateral upper abdominal location for percutaneous biopsy and possible abscess drainage in the right upper quadrant at approximately the mid axillary line for percutaneous drainage was chosen by CT. A generous portion of the right upper quadrant was prepped with ChloraPrep and draped. The insertion site was anesthetized with 1% lidocaine. A 5 mm incision was made a # 11 blade. A 19-gauge needle was carefully advanced into the low-density area in the midportion of the right hepatic lobe utilizing CT guidance. Through this needle, a biopsy of the surrounding area was obtained. Next, the needle was directed into the central portion of the low-density area under CT guidance. A small amount of purulent material was obtained indicating good position within the collection. Repeat CT images demonstrate good position of the needle and tract. A.035 inch Amplatz guidewire was then advanced into the collection without difficulty. The tract was dilated to 10 [place]. A 10-[place] cope loop multipurpose drainag e catheter was then advanced into the collection. 25 cc of purulent material was obtained. A sample was sent for culture. The catheter was then attached to a suction bulb device.. Follow-up CT images demonstrate essentially complete evacuation of the collection without evidence of complication. Next, the larger lesion in the upper portion of the left hepatic lobe near the dome was addressed. The right upper quadrant was re-prepped with ChloraPrep and redraped. A 19 gauge guide needle was advanced into the low-density lesion in the left hepatic lobe. Aspiration was performed utilizing no fluid. Therefore, this did not appear to represent an abscess. Biopsy was then performed through the 19 gauge needle. Several core biopsies were obtained with a 20 gauge Morris-Cut needle. These were placed in formalin for pathology and a sample was also sent for cultures. The needle was then removed. Final CT images of the upper abdomen after both procedures demonstrated no evidence of hemorrhage or other significant complication. CT imaging performed at this location utilizes radiation dose optimization techniques which include one or more of the following: -Automated exposure control. -Adjustment of the mA and/or kV accordin g to patient size. -Use of iterative reconstruction techniq ue. CT Radiation Dose DLP Radiation 2137.21 mGy-cm The patient tolerated the procedure well and suffered no immediate complications. * IMPRESSION: 1. Percutaneous drainage of right hepati c abscess with a 10 [place]er catheter. Approximately 25 mL of purulent material was obtained and a sample sent for culture. 2. Percutaneous biopsy of the liver lyndsey cent to the right hepatic abscess. 3. Percutaneous biopsy of larger lesion in the left hepatic lobe near the dome. An aspiration was performed utilizing no purulent material and therefore this does not appear to represent an abscess at this time. * DISPOSITION: 1. Cultures the and histology are pendin g. 2. The catheter will be attached to a diane ction bulb device. 3. Biopsies are pending. On 12/13/2019 12:09:21; 12/13/2019 [facility] Abscess abdomen peritoneum drainage VR Addendum: The pathology report was reviewed. It is noted the lesion near the dome of the liver which was biopsied was interpreted by the pathologist's as representing adenocarcinoma. Please refer to the biopsy report. Abdullahi Garrison MD On 12/20/2019 11:32:32; [id number] PROCEDURE INFORMATION: Exam: 1. PERCUTANEOUS BIOPSY OF CENTRAL RIGHT HEPATIC LOBE LESION. 2. PERCUTANEOUS DRAINAGE OF HEPATIC ABSC ESS. 3. PERCUTANEOUS BIOPSY OF HEPATIC LESION IN THE UPPER PORTION OF THE LEFT HEPATIC LOBE NEAR THE DOME. Exam date and time: 12/13/2019 9:46 AM Age: 59 years old Clinical indication: Low-density lesions within the liver as described on the recent CT scan and MRI, suspected abscesses. * PROCEDURE: 1. BIOPSY LOW-DENSITY LESION IN THE CENT RAL PORTION OF THE RIGHT HEPATIC LOBE. 2. PERCUTANEOUS DRAINAGE OF HEPATIC ABSC ESS. 3. PERCUTANEOUS BIOPSY OF HEPATIC LESION IN THE UPPER PORTION OF THE LEFT HEPATIC LOBE NEAR THE DOME. * PHYSICIAN PROVIDING SERVICE: Abdullahi Garrison M.D. * HISTORY: Abnormal lesions in the upper portion of the left hepatic lobe near the dome in the central portion of the right hepatic lobe. These were felt to be suspicious for abscesses. The patient was referred for percutaneous drainage and biopsy if indicated. This procedure describes the biopsy and the drainage of the hepatic lesion which was demonstrated to be an abscess in the central portion of the right hepatic lobe. * SEDATION: Intravenous Versed and fentanyl. 1.5 mg of Versed and 100 mcg of fentanyl were utilized. 'Face to face' sedation time: 37 minutes * CONSENT: The procedure, risks, benefits and alternatives were discussed with the patient and written informed consent was obtained. * IMAGING STUDIES REVIEWED: CT scan of the abdomen pelvis of 12/09/2019 and MRI of the abdomen of 12/11/2019. * TECHNIQUE: Preliminary CT images were obtained through the upper abdomen the patient in the supine position. A relatively small (approximately 2.6 cm) low-density lesion in the central portion of the right hepatic lobe was localized the period a suitable the right lateral upper abdominal location for percutaneous biopsy and possible abscess drainage in the right upper quadrant at approximately the mid axillary line for percutaneous drainage was chosen by CT. A generous portion of the right upper quadrant was prepped with ChloraPrep and draped. The insertion site was anesthetized with 1% lidocaine. A 5 mm incision was made a # 11 blade. A 19-gauge needle was carefully advanced into the low-density area in the midportion of the right hepatic lobe utilizing CT guidance. Through this needle, a biopsy of the surrounding area was obtained. Next, the needle was directed into the central portion of the low-density area under CT guidance. A small amount of purulent material was obtained indicating good position within the collection. Repeat CT images demonstrate good position of the needle and tract. A.035 inch Amplatz guidewire was then advanced into the collection without difficulty. The tract was dilated to 10 [place]. A 10-[place] cope loop multipurpose drainag e catheter was then advanced into the collection. 25 cc of purulent material was obtained. A sample was sent for culture. The catheter was then attached to a suction bulb device.. Follow-up CT images demonstrate essentially complete evacuation of the collection without evidence of complication. Next, the larger lesion in the upper portion of the left hepatic lobe near the dome was addressed. The right upper quadrant was re-prepped with ChloraPrep and redraped. A 19 gauge guide needle was advanced into the low-density lesion in the left hepatic lobe. Aspiration was performed utilizing no fluid. Therefore, this did not appear to represent an abscess. Biopsy was then performed through the 19 gauge needle. Several core biopsies were obtained with a 20 gauge Morris-Cut needle. These were placed in formalin for pathology and a sample was also sent for cultures. The needle was then removed. Final CT images of the upper abdomen after both procedures demonstrated no evidence of hemorrhage or other significant complication. CT imaging performed at this location utilizes radiation dose optimization techniques which include one or more of the following: -Automated exposure control. -Adjustment of the mA and/or kV accordin g to patient size. -Use of iterative reconstruction [employer] ue. CT Radiation Dose DLP Radiation 2137.21 mGy-cm The patient tolerated the procedure well and suffered no immediate complications. * IMPRESSION: 1. Percutaneous drainage of right hepati c abscess with a 10 [place] catheter. Approximately 25 mL of purulent material was obtained and a sample sent for culture. 2. Percutaneous biopsy of the liver lyndsey cent to the right hepatic abscess. 3. Percutaneous biopsy of larger lesion in the left hepatic lobe near the dome. An aspiration was performed utilizing no purulent material and therefore this does not appear to represent an abscess at this time. * DISPOSITION: 1. Cultures the and histology are pendin g. 2. The catheter will be attached to a diane ction bulb device. 3. Biopsies are pending. Abdullahi Garrison MD On 12/13/2019 12:09:21; [id number] 12/13/2019 [facility] Abdomen w/wo contrast MRI PROC EDURE INFORMATION: Exam: MR Abdomen Without and With Contrast; Liver Exam date and time: 12/11/2019 11:05 PM Age: 59 years old Clinical indication: Condition or disease; Liver condition; Lesion; Additional info: /liver lesions? Abscess TECHNIQUE: Imaging protocol: MR Abdomen with and without intravenous contrast. Exam focused on the liver. 3D rendering: MIP and/or 3D reconstructe d images were created by the technologist. Contrast material: DOTAREM; Contrast volume: 28 ml; Contrast route: RIGHT ARM; COMPARISON: CHEST, ABDOMEN, PELVIS WO CONTRAST CT 12/09/2019 9:11 PM FINDINGS: Liver: Multiple hepatic lesions as follows: segment 8/4a (6.3 x 5 cm), segment 2 (5.3 x 3.8 cm), segment 8 (3.7 x 3.5 c m), and segment 5 (2.2 x 1.7 cm). These lesions all demonstrate mildly hyperintense and heterogeneous T2 signal as well as multiple enhancing septations. The masses also demonstrate perilesional edema and wall enhancement. Two additional subcentimeter lesions within the right hepatic lobe demonstrate mild hyperintense T2 signal as well as homogeneous arterial enhancement that remain hypervascular on the delayed images. Mild hepatic steatosis. Gallbladder and bile ducts: Unremarkable gallbladder. No biliary dilatation. Pancreas: Small 6 mm T2 hyperintense cystic lesion within the pancreatic tail. No atrophy or ductal dilatation. Spleen: No splenomegaly. Adrenals: Small right adrenal myelolipoma (1.3 cm). Kidneys and ureters: No hydronephrosis or solid mass. Stomach and bowel: No obstruction. Intraperitoneal space: No free air or free fluid. Vasculature: No aortic aneurysm. Bones/joints: Normal marrow signal. IMPRESSION: Multiple bilobar liver lesions most suspicious for hepatic abscesses. Recommend follow-up MRI to document resolution and to exclude underlying neoplasm. Two subcentimeter hypervascular lesions within the right hepatic lobe which likely represent focal nodular hyperplasias or hemangiomas. Small cystic lesion (6 mm) within the pancreatic tail. Recommend reimage every 1 year for 5 years. (MARY Gamez et al. ACR White Paper, January 2017) Small right adrenal myelolipoma. Silvia Canada MD On 12/12/2019 11:35:45; [id number] 12/11/2019 [facility] Chest/Abdomen/Pelvis wo IV contrast CT Radiation Dose CTDIVOL = 0 (mGy): DLP = 1387.24 (mGy-cm) PROCEDURE INFORMATION: Exam: CT Chest Without Contrast Exam date and time: 12/09/2019 9:11 PM Age: 59 years old Clinical indication: Fever; Additional info: /fever TECHNIQUE: Imaging protocol: Computed tomography of the chest without contrast. Radiation optimization: All CT scans at this facility use at least one of these dose optimization techniques: automated exposure control; mA and/or kV adjustment per patient size (includes targeted exams where dose is matched to clinical indication); or iterative reconstruction. COMPARISON: CHEST 1VIEW DX 12/09/2019 6:50 PM RADIATION DOSE METRICS: Total DLP: 1387.24 mGy-cm FINDINGS: Tracheobronchial tree: The central bronchi are patent. Lungs: No consolidation. Calcified granuloma right upper lobe. Atelectasis and some ground-glass opacities of the lower lobes suspicious for inflammation. Pleural space: Unremarkable. No pneumothorax. No pleural effusion. Heart: Coronary artery calcification. No cardiomegaly or pericardial effusion. Mediastinum: Prominence of mediastinal fat. Aorta: Atherosclerotic calcification of the aorta. Ascending aorta is dilated at 4.7 cm. Lymph nodes: Unremarkable. No enlarged lymph nodes. Bones/joints: Degenerative changes of the spine. Soft tissues: Unremarkable. Notes: Visualized lower neck is unremarkable. PROCEDURE INFORMATION: Exam: CT Abdomen And Pelvis Without Contrast Exam date and time: 12/09/2019 9:11 PM Age: 59 years old Clinical indication: Fever; Additional info: /fever TECHNIQUE: Imaging protocol: Computed tomography of the abdomen and pelvis without contrast. Radiation optimization: All CT scans at this facility use at least one of these dose optimization techniques: automated exposure control; mA and/or kV adjustment per patient size (includes targeted exams where dose is matched to clinical indication); or iterative reconstruction. COMPARISON: CHEST 1VIEW DX 12/09/2019 6:50 PM RADIATION DOSE METRICS: Total DLP: 1387.24 mGy-cm FINDINGS: Mediastinum: Small hiatal hernia. Liver: Liver is enlarged at 20 cm. There are least 3 low-attenuation lesions of the liver which are indeterminate and cannot be characterized without IV contrast largest measuring 5.8 cm at the hepatic dome (series 2, image 53) additional lesion seen on (series 2, images 61, 80). Gallbladder and bile ducts: No calcified stones. No pericholecystic inflammatory changes. No ductal dilation. Pancreas: No peripancreatic inflammatory changes. No mass. No ductal dilation. Spleen: Normal. No splenomegaly. Adrenals: Normal. No mass. Kidneys and ureters: 5 mm hyperdensity of the right kidney is too small to characterize. No renal or ureteral calculi. No hydronephrosis or hydroureter. Stomach and bowel: Abnormal wall thickening of the sigmoid colon with adjacent pericolonic inflammatory changes with suggestion of some shouldering of. No bowel obstruction. Appendix: No evidence of appendicitis. Intraperitoneal space: No ascites or free air. No significant fluid collection. Vasculature: The vasculature demonstrates diffuse moderate atherosclerotic calcification. No abdominal aortic aneurysm. Lymph nodes: Prominent lymph nodes adjacent to the sigmoid colon measuring up to 12 mm. No retroperitoneal lymphadenopathy. Bladder: Unremarkable as visualized. Reproductive: Unremarkable as visualized. Bones/joints: Unremarkable. No acute fracture. Soft tissues: Unremarkable. COMMENTS: Consistent with the [employer]'s Incidental Findings Committee white paper (J Am Ciera Radiol 2018): Any incidental cystic renal lesion classified in this report as too small to characterize or simple appearing is likely a benign cyst. No follow-up imaging is recommended for these lesions per consensus recommendations based on imaging criteria. IMPRESSION: CT Chest Without Contrast Mild ground-glass opacities and atelectasis of the lower lobes most likely related to inflammation CT Abdomen And Pelvis Without Contrast 1. Abnormal wall thickening and inflamma tory changes of the sigmoid colon most likely related to acute diverticulitis however given the additional findings of shouldering and regional lymphadenopathy possibility of colonic malignancy cannot be excluded therefore suggest a follow-up CT exam after treatment to ensure resolution of findings 2. Multiple indeterminate hepatic lesion s suggest further evaluation with CT or MRI exam with IV contrast and liver protocol 3. Hepatomegaly Juana Botello MD On 12/09/2019 22:13:46; [id number] 12/09/2019 [facility] Chest 1view DX PROCEDURE INFOR MATION: Exam: XR Chest, 1 View Exam date and time: 12/09/2019 6:50 PM Age: 59 years old Clinical indication: Other: Tachycardia; Patient HX: HTN, hld, dm TECHNIQUE: Imaging protocol: XR of the chest Views: 1 view. COMPARISON: No relevant prior studies available. FINDINGS: Lungs: Minimal haziness in the right lung base may be atelectasis. The lungs are clear otherwise. Pleural space: Unremarkable. No pleural effusion. No pneumothorax. Heart/Mediastinum: Heart size is within normal limits. Vasculature is unremarkable. Bones/joints: Unremarkable. IMPRESSION: Minimal right lung base atelectasis Marcelino Sneed MD On 12/09/2019 19:19:41; [id number] 12/09/2019 [facility] Consultation Notes No Data Provided for This Section Discharge Summaries No Data Provided for This Section History and Physicals No Data Provided for This Section Vital Signs Vital Sign Value Date Comments Source Temperature Oral (F) 98.5 F 12/19/2019 [facility] Heart Rate 100 12/19/2019 [facility] Respitory Rate 18 12/19/2019 [facility] Systolic (mm Hg) 124 12/19/2019 [facility] Diastolic (mm Hg) 87 12/19/2019 [facility] Systolic (mm Hg) 139 12/19/2019 [facility] Diastolic (mm Hg) 90 12/19/2019 [facility] Temperature Oral (F) 97.8 F 12/19/2019 [facility] Heart Rate 84 12/19/2019 [facility] Respitory Rate 18 12/19/2019 [facility] Temperature Oral (F) 97.8 F 12/19/2019 [facility] Heart Rate 89 12/19/2019 [facility] Respitory Rate 18 12/19/2019 [facility] Systolic (mm Hg) 132 12/19/2019 [facility] Diastolic (mm Hg) 88 12/19/2019 [facility] Height 182.88 cm 12/10/2019 [facility] Weight 145.455 12/10/2019 [facility] BMI Calculated 43.49 12/10/2019 [facility] Height 182.88 cm 12/09/2019 [facility] BMI Calculated 43.49 12/09/2019 [facility] Weight 145.455 12/09/2019 [facility] Encounters Location Location Details Encounter Type Encounter Number Reason For Visit Attending Provider ADM Date DC Date Status Source [facility] Inpatient [id number] Mahnaz Hunter 12/09/2019 12/19/2019 [facility] Procedures No Data Provided for This Section Assessment and Plan Assessment and Plan Date Source Extracted from:Title: CRS Author: Florian Liao MD Date: 12/19/19 [facility] Surgeon: Marcelino Martinez MD Referring Physician: Vicente Alvarenga MD Date of Consultation: 12/19/19 Reason for consultation: Colon mass Chief Complaint: feels well History of Present Illness: 59 M who presented with intra abdominal sepsis 2/2 perforated colon lesion. Labs showed high CEW. imaging showed sigmoid mass with liver lesions, biopsy of which showed adenocarcinoma. Currently, patient is doing well. Denies any abdominal pain, nausea, bleeding per rectum. He is tolerating regular diet and having bowel function Past Medical History: HTN, HLD, DM Past Surgical History: none Allergies: NKDA Medications: See MAR Family History: non contributory Social History: Denies any smoking, alcohol, or recreational drugs Review of Systems negative except for above Physical Exam Vital Signs: Vitals Tmp(F) Tmp(C) Ttype BP MAP Pulse RR SpO2 FIO2 ETCO2 12/18 08:00 97.8 36.56 oral 132/88 103 89 18 94 --- --- 12/18 04:33 98.3 36.83 oral 122/83 --- 74 18 94 --- --- 12/18 00:38 98.6 37.00 oral 145/89 108 76 18 96 --- --- 12/17 20:00 98.6 37.00 oral 137/82 --- 91 18 94 --- --- 12/17 14:56 ---- ---- ---- 1 26/95 --- 110 20 92 --- --- 24 Hr Tmax: 98.6F (37.00c) at 12/18 00:3 8 24 Hr Tmin: 97.5F (36.39c) at 12/17 12:12 36 Hr Tmax: 98.6F (37.00c) at 12/18 00:3 8 36 Hr Tmin: 97.5F (36.39c) at 12/17 12:12 General appearance: Alert and oriented x3, no acute distress HEENT: normocephalic, atraumatic Heart: regular rate Vascular exam: 2+ pulses throughout Lungs: clear to auscultation bilaterally Abdomen: soft, non-tender, non-distended Musculoskeletal: no limitation of passive/active motion Skin: Integument intact without rashes or erythema Psych: cooperative Pertinent Laboratory Evaluation reviewed. CEA 410.[address] a/p- reviewed (chest-negative, a/p- sigmoid thickening with liver lesions ) MRI abdomen: Multiple bilobar liver lesions most suspicious for hepatic abscesses. Recommend follow-up MRI to document resolution and to exclude underlying neoplasm. Two subcentimeter hypervascular lesions within the right hepatic lobe which likely represent focal nodular hyperplasias or hemangiomas. Liver biopsy: Diagnosis 1. Lateral liver, biopsy of abscess: - Focal portal and lobular acute inflammation. - Mild macrovesicular steatosis. 2. Liver dome lesion, biopsy: - ADENOCARCINOMA WITHIN DENSELY FIBROTIC TISSUE (SEE COMMENT). Assessment: 59 M with sigmoid lesion likely to be co justa cancer with + liver biopsy for Adenocarcinoma Plan: Currently patient is doing very well and is on the launching pad to be discharged. No indication for surgical intervention at this point. Patient was instructed to follow up with Dr Martinez in 2-3 weeks as an outpatient. All his questioned were answered. Addendum by Maya Lopez MD on 12/19/2019 13:59 Patient seen and examined with resident. Agree with above findings, assessment, and plan. Metastatic CRC with liver mets. PICC and plan chemo. Will need C-scope. ROS: Constitutional Symptoms: _x fever, x_ weight loss, _x weight gain, _x fatigue, x_ malaise Eyes: _x diplopia, _x blurred vision, _x redness, _x discharge, _x loss of vision Ears, Nose, Mouth, Throat: _x dysphagia, _ x xodynophagia, _x otalgia, _x deafness, x_ rhinorrhea Cardiovascular: _x chest pain, x_ SOB, x_ COLMENARES, _ x orthopnea, x_ PND, x_ poor exercise tolerance, _ palpitations Respiratory: _ same as CVS, x_ cough, _x hemoptysis Gastrointestinal: _x NVD, _x BPR, _x dark stool, x_ constipation, x_ abdominal pain Genitourinary: x_ dysuria, x_ frequency, x_ urgency, _x nocturia, x_ incontinence Musculoskeletal: _x arthralgia, x_ myalgia, x_ stiffness Integumentary (skin and/or breast): _x rash, x_ hives, x_ breast pain, x_ mass, x_ nipple dc Neurological: _x weakness, _x headache, _ x seizure, x_ dizziness, x_ tingling, x_ numbness Psychiatric: x_ anxiety, _x depression, _x insomnia Endocrine: x_ polyuria, x_ polydipsia, x_ fatigue, xx_ weight loss, x_ weight gain, _x cold or heat intolerance, _x palpitations Hematologic/Lymphatic: x_ bleeding, _x bruising, x_ edema, _x lumps (axilla groin neck) Allergic/Immunologic: _x rash, _x allergies, _x fever, _x chills Extracted from:Title: Clinical Document Author: Carlyn Guillory Date: 12/19/19 Progress Note - Daily [facility] Completed: November, 11:39 by Carlyn Guillory RM: 119 - 2W, SE C1B SOLO SMALL 59y (: 1960) M Attending: Vicente Alvarenga MD Service: Internal Medicine Reason for Admission: FEVER, HYPOTENSION, ELENITA, SINUS TACHYCARDIA, LUEKOCYTOS. Working DRG: Code status: None Specified=FULL CODE Current diet: Isolation: No Isolation/Standard Precautions Allergies: No Known Allergies SUBJECTIVE no acute complaints anxious to go home OBJECTIVE 24hr Labs 12/18 0836 POC Performing Locatio See Note Glucose POC 137 H 12/18 0538 Glucose Lvl 87 BUN 9 Creatinine Lvl 0.80 Sodium Lvl 139 Potassium Lvl 4.0 Chloride Lvl 107 CO2 27 AGAP 9.0 L Calcium Lvl 9.0 eGFR 99 LDH 329 H Magnesium Lvl 2.4 Hgb 13.9 L Hct 42.9 12/17 2149 POC Performing Locatio See Note Glucose POC 104 H 12/17 1603 POC Performing Locatio See Note Glucose POC 94 [place] still necessary (Yes/No): Line still necessary (Yes/No): Vitals Tmp(F) Pulse BP RR SpO2 FIO2 12/18 08:00 97.8 89 132/88 1 8 94 --- 12/18 04:33 98.3 74 122/83 1 8 94 --- 12/18 00:38 98.6 76 145/89 1 8 96 --- 12/17 20:00 98.6 91 137/82 1 8 94 --- 12/17 14:56 ---- 110 126/95 20 92 --- 24 Hr Tmax: 98.6F (37.00c) at 12/18 00:3 8 Vital Signs are the last 5 in the past 48 hours. Date Wt(kg) Wt(lb) Ht(cm) Ht(in) Method 12/09 145.46 320.00 182.88 72.00 Maisha/Sta 12/08 (initial) 145.46 320.00 Estimated 12/08 182.88 72.00 Stated I&O Record In Out Bal 12/18 24hr Tot 360 0 360 12/17 24hr Tot 500 650 -150 Medications (26) Active Scheduled Meds (8): 12/10/19 allopurinol 300 mg PO Daily 12/12/19 amLODIPine 10 mg PO Daily 12/10/19 atorvastatin 40 mg PO Daily 12/13/19 cefTRIAXone + sterile water 20 mL 2 gm IVP [id number] 240 ml/hr 12/10/19 enoxaparin 40 mg SUB-Q [id number] 12/10/19 fenofibrate (fenofibrate 48 mg oral tablet) 48 mg PO Daily 12/10/19 levothyroxine (Levothroid) 50 m icrogram PO Daily 12/18/19 lisinopril 5 mg PO Daily Unscheduled Meds: None PRN Meds (18): 12/10/19 Dextrose 50% in Water IV (Dextr ose 50% Syringe (D50W)) 12.5 gm IVP PRN 12/10/19 Dextrose 50% in Water IV (Dextr ose 50% Syringe (D50W)) 25 gm IVP PRN 12/10/19 acetaminophen-hydrocodone (Norc o 5/325 oral tablet) 1 tab PO Q6H 12/10/19 acetaminophen 650 mg PO Q4H 12/10/19 docusate 100 mg PO BID 12/10/19 glucagon 1 mg IM PRN 12/12/19 hydrALAZINE 10 mg IVP Q6H 12/10/19 insulin lispro 1 unit SUB-Q Sli ding Scale 12/10/19 insulin lispro 2 unit SUB-Q Sli ding Scale 12/10/19 insulin lispro 3 unit SUB-Q Sli ding Scale 12/10/19 insulin lispro 4 unit SUB-Q Sli ding Scale 12/10/19 insulin lispro 5 unit SUB-Q Sli ding Scale 12/10/19 morphine Sulfate 2 mg IVP Q4H 12/10/19 ondansetron 4 mg IVP Q8H 12/10/19 senna 8.6 mg PO BID 12/09/19 sodium chloride (Saline Flush 0 .9%) 10 mL IVP PRN 12/10/19 sodium chloride (Saline Flush 0 .9%) 10 ml IVP PRN 12/10/19 triamcinolone topical (triamcin olone topical 0.1% cream) 1 appl TOP BID One Time Meds: None Continuous Infusions: None EXAM General: awake, alert, no acute distress, obese HEENT: normocephalic, atraumatic, sclera anicteric Neck: Supple Respiratory: Clear to auscultation bilaterally, no retractions Cardiac: S1, S2 distinct, no murmur Abdomen: soft, nontender, nondistended, +BS, Ext: no LE edema, no rash Skin: warm, pink, dry Neuro: AxOx3 IMPRESSION: 1. acute diverticulitis 2. possible colon cancer with mets to li kacie given high CEA and abnormal imaging -liver bx with adenocarcinoma likely mets with colon primary 3. leukocytosis - improving 4. abnormal MRI abdomen findings of mult iple hepatic lesions suspicious for hepatic abscess s/p drainage of liver abscess on 12/12 with subsequent removal of ANA drain and liver bx done (cultures negative to date) 5. bacteremia PLAN: 1. cont custodial IV abx; ID following 2. analgesia prn 3. colonoscopy with biopsy in 4 weeks as outpatient after resolution of acute diverticulitis. F/up with Dr Patel as outpatient for colonoscopy. 4. oncology following, colorectal surger y evaluation as outpatient. Discussed with patient regarding bx results 5. okay for discharge from GI standpoint . F/up with Dr Patel in 2 weeks GI Attending I have examined the patient with the Physician Flat Breakdown Processor and confirmed the essential components of history, physical examination, diagnosis and treatment plan. I agree with the patient's care as documented by the Physician Flat Breakdown Processor. Extracted from:Title: History and Physical Author: Marcela Álvarez MD Date: 12/10/19 # Severe sepsis # Acute diverticulitis - GI consulted - IVFs - rocephin/flagyl # Possible GI malignancy # Hepatic lesions - GI consulted - check AFP and CEA - may need colonoscopy vs liver biopsy w ith IR - hold off on liver imaging with contras t for now given ELENITA # ELENITA vs CKD 3 - renal consulted by ER - no hydronephrosis on CT - check urine lytes - IVFs # HTN - hold BP meds 2/2 sepsis and hypotensio n # Pre DM - hold metformin - SSI # HLD - resume statin and fenofibrate # Gout without acute attack - resume allopurinol # Hypothyroidism - check TSH/T4 - resume levothyroxine lovenox > 2 midnights 12/19/2019 [facility] Plan of Care No Data Provided for This Section Social History Social History Date Source Social History TypeResponse Alcohol Never Substance Abuse Use: None. Smoking Status Never smoker; Exposure to Tobacco Smoke None; Cigarette Smoking Last 365 Days No; Reg Smoking Cessation Counseling No entered on: 12/09/19 12/10/2019 [facility] Family History No Data Provided for This Section Advance Directives No Data Provided for This Section Functional Status No Data Provided for This Section
--- OUTSIDE RECORDS SUMMARY | 2020-03-18 12:55 | XMS REPORT | Continuity of Care Document ---
Author Author [facility] t Organization [facility] Address [address] [place] [id number] Phone Unavailable Care Team Providers Care Blanket Binder Name Role Phone MARILIN INFANTE Attphys Unavailable Jerome Alvarenga Attphys RUBI MEDINA M.D. Attphys Unavailable Mahnaz Hunter Admphys Payers Payer Name Policy Type Policy Number Effective Date Expiration Date S ource Problems Condition Name Condition Details Condition Category Status Onset Date Resolution Date Last Treatment Date Treating Clinician Comments Source LOW BP LOW BP Active 12/09/2019 [facility] Active 2019-12-09 00:00:00 2019-12-09 19:14:00 [facility] FEVER, HYPOTENSION, ELENITA, SINUS TACHYCARD FEVER, HYPOTENSION, ELENITA, SINUS TACHYCARD Active 12/09/2019 [facility] Active 2019-12-09 00:00:00 2020-01-20 13:25:00 [facility] Pain in both knees, unspecified chronicity Pain in bot h knees, unspecified chronicity Problem HL7.CCDAR2 Active Un [facility] Arthritis of knee, left Arthritis of knee, left Problem HL7.CCDAR2 Activ [facility] FEVER, UNSPECIFIED FEVE R, UNSPECIFIED Active [facility] Active 2020-01-20 13:25:00 Or morial [facility] HYPOTENSION, UNSPECIFIED HYPO TENSION, UNSPECIFIED Active [facility] Active 2020-01-20 13:25:00 [facility] ACUTE KIDNEY FAILURE, UNSPECIFIED ACUTE KIDNEY FAILURE, UNSPECIFIED Active [facility] Active 2020-01-20 13 :25:00 Faviola Thorne Allergies, Adverse Reactions, Alerts Allergy Name Allergy Type Status Severity Reaction(s) Onset Date Inacti ve Date Treating Clinician Comments Source No Known Allergies DA Active U 2018-06-26 00:00:00 [facility] Social History Social Habit Start Date Stop Date Quantity Comments Source Social History 2019-12-10 10:45:11 2019-12-10 10:45:11 Faviola Thorne Medications Ordered Medication Name Filled Medication Name Start Date Stop Da te Current Medication? Ordering Clinician Indication Dosage Frequency Signature (SIG) Comments Components Source cefTRIAXone 2 g injection 2019-12-20 21:02:00 Yes 2 gm, IV, Q24H, X 18 day, # 18 ea, 0 Refill(s), other Norberto rial Mati Miralax 2019-12-20 14:00:00 No Notes: Dissolve in 8 oz of water or juice. (Same as: Miralax) Faviola Titus nn Rocephin + sterile water 20 mL 2019-12-19 22:00:00 No Notes: (Same As: Rocephin). Use with 100 mL NS and infuse over 30 min MEDICATION WASTE Product Size: 2000 mg Product Wasted: ___ mg Faviola Throne POLYETHYLENE GLYCOL 3350 142 MG/ML Oral Solution [Miralax] 2019-12-19 21:02:00 Yes 17 gm, PO, Daily, PRN Constipation, # 527 gm, 0 Refill(s), Pharmacy: [id number] Acetaminophen 300 MG / Codeine Phosphate 30 MG Oral Tablet 2019-12-19 21:02:00 Yes 1 tab, PO, Q6H, PRN Pain Score 7-10, X 3 day, # 12 tab, 0 Refill(s) Faviola Thorne Lisinopril 2019-12-18 14:00:00 No Notes: (Same as: Prinivil Zestril) Faviola Thorne magnesium citrate 58.2 MG/ML Oral Solution 2019-12-16 21:19:00 No Notes: (Same as: Citrate of Magnesia) Concentration: 1.745 gm / 30 mL Faviola Thorne Docusate 2019-12-16 14:00:00 No 100 mg, Route: PO, BID, Dosing Weight 145.455, kg, Start date: 12/16/19 9:00:00 CDT, Duration: 30 day, Stop date: 01/14/20 17:00:00 CDT [facility] jessica Amlodipine 2019-12-15 21:12:00 No Notes: (S ally as: Norvasc) [facility] Ceftriaxone 2019-12-14 02:00:00 No Notes: (Same As: Rocephin). Use with 100 mL NS and infuse over 30 min MEDICATION WASTE Product Size: 2000 mg Product Wasted: ___ mg [facility] Hydralazine 2019-12-12 22:23:00 No Notes: (Same as: Apresoline) Push over 5 minutes [facility] Amlodipine 2019-12-12 22:22:00 No Notes: (S ally as: Norvasc) [facility] Ativan 2019-12-11 20:59:00 No Notes: (Same as: Ativan) [facility] Zosyn 2019-12-11 20:00:00 No Notes: (Same as: Zosyn) Dosing based on Piperacillin component MEDICATION WASTE Product Size: 3375 mg Product Wasted: ___ mg [facility] Rocephin + sterile water 10 mL 2019-12-11 05:00:00 No Notes: (Same As: Rocephin). Use with 100 mL NS and infuse over 30 min MEDICATION WASTE Product Size: 1000 mg Product Wasted: ___ mg [facility] Dulcolax Laxative 2019-12-11 02:00:00 No 10 mg, 2 tab, Route: PO, Drug form: ECTAB, ONCE, Dosing Weight 145.455, kg, Start date: 12/10/19 21:00:00 CDT, Stop date: 12/10/19 21:00:00 CDT, 0 [facility] Docusate 2019-12-11 02:00:00 No Notes: (Same as: Colace) (Do Not Crush) [facility] sennosides, INTERMEDIATE 2019-12-11 02:00:00 No Notes: (Same as: Senokot) [facility] Acetaminophen 325 MG / Hydrocodone Bitartrate 5 MG Oral Tabl et [Pennock 5/325] 2019-12-10 14:01:00 No Notes: (Same as: Pennock 325/5) Do not exceed 4gm/day of acetaminophen. Faviola Titus nn Morphine 2019-12-10 14:01:00 No Not es: (Same as:MORPhine Sulfate) Faviola Thorne Cipro 2019-12-10 14:00:00 No Notes: Do not refrigerate [facility] [place] Allopurinol 2019-12-10 14:00:00 No Notes: ( Same as: Zyloprim) [facility] atorvastatin 2019-12-10 14:00:00 No Notes: (Same as: Lipitor) [facility] Fenofibrate 48 MG Oral Tablet 2019-12-10 14:00:00 No Notes: (Same as: Tricor) [facility] Levothroid 2019-12-10 11:30:00 No Notes: Take 1 hour before or 2 hours after meal; Enteral feeds may interefere with the absorption of this medication.(Same as:Levothroid, Synthroid) [facility] Enoxaparin 2019-12-10 06:00:00 No Notes: (S ally as: Lovenox) [facility] Dextrose 50% Syringe (D50W) 2019-12-10 05:36:00 No 12.5 gm, 25 mL, Route: IVP, Drug Form: INJ, Dosing Weight 145.455, kg, PRN, PRN Blood Glucose Results, Start date: 12/10/19 0:36:00 CDT, Duration: 30 day, Stop date: 01/09/20 0:35:00 CDT, 0 [facility] Glucagon 2019-12-10 05:36:00 No 1 mg, Route: IM, Drug form: PDR/INJ, PRN, Dosing Weight 145.455, kg, PRN Blood Glucose Results, Start date: 12/10/19 0:36:00 CDT, Duration: 30 day, Stop date: 01/09/20 0:35:00 CDT, 0 [facility] Insulin Lispro 2019-12-10 05:36:00 No Notes: (Same as: Humalog) Roll in palms of hands gently; Do not shake vigorously. WASTE: F/P - Black; E - Municipal Trash Bin Stable for 28 days at room temperature. Expires in days from Date Faviola Ghulam monica Triamcinolone Acetonide 1 MG/ML Topical Cream 2019-12-10 05:35:0 0 No Notes: (triamcinolone acetonide 0.1% 15 gm top CRM) (Same As: Sidney nalog) Faviola Thorne Sodium Chloride 0.9% IV 1,000 mL 2019-12-10 05:33:00 No 1,000 mL, Rate: 125 ml/hr, Infuse over: 8 hr, Route: IV, Dosing Weight 145.455 kg, Total Volume: 1,000, Start date: 12/10/19 0:33:00 CDT, Duration: 30 day, Stop date: 01/09/20 0:32:00 CDT, 2.75, m2, 0 Brian Traore Saline Flush 0.9% 2019-12-10 05:33:00 No Notes: (Same as: BD Posiflush) [facility] Metronidazole 2019-12-10 05:33:00 No Notes: (Same as: Flagyl) Avoid alcohol. Faviola Thorne NS (Bolus) IV 2019-12-10 05:28:00 No 1,000 mL, 1,000 ml/hr, Infuse Over: 1 hr, Route: IV, 1,000, Drug form: INJ, ONCE, Priority: STAT, Dosing Weight 145.455 kg, Start date: 12/10/19 0:28:00 CDT, Stop date: 12/10/19 0:28:00 CDT, 0 [facility] Ondansetron 2019-12-10 05:21:00 No Notes: (Same as: Zofran) MEDICATION WASTE Product Size: 4 mg Product Wasted: ___ mg Faviola Thorne Acetaminophen 2019-12-10 05:21:00 No Notes: Do not exceed 4 gm/day. (Same as: Tylenol) Faviola Thorne Metronidazole 2019-12-10 04:00:00 No Notes: (Same as: Flagyl) Avoid alcohol. Faviola Thorne Azithromycin 2019-12-10 03:59:00 No Notes: (Same As: Zithromax IV) Faviola Thorne Ceftriaxone 2019-12-10 03:59:00 No Notes: (Same As: Rocephin). Use with 100 mL NS and infuse over 30 min MEDICATION WASTE Product Size: 1000 mg Product Wasted: ___ mg Faviola Thorne Zofran 2019-12-10 03:54:00 No 4 mg, Route: IVP, Drug form: INJ, ONCE, Dosing Weight 145.455, kg, Priority: STAT, Start date: 12/09/19 22:54:00 CDT, Stop date: 12/09/19 22:54:00 CDT Me raffy Thorne Acetaminophen 2019-12-10 03:51:00 No 1,000 mg, 2 tab, Route: PO, Drug form: TAB, ONCE, Dosing Weight 145.455, kg, Start date: 12/09/19 22:51:00 CDT, Stop date: 12/09/19 22:51:00 CDT, 0 [facility] Tylenol 2019-12-10 03:45:00 No 1,000 mg, 2 tab, Route: PO, Drug form: TAB, ONCE, Dosing Weight 145.455, kg, Priority: STAT, Start date: 12/09/19 22:45:00 CDT, Stop date: 12/09/19 22:45:00 CDT, 0 [facility] NS (Bolus) IV 2019-12-10 03:32:00 No 1,000 mL, 1,000 ml/hr, Infuse Over: 1 hr, Route: IV, 1,000, Drug form: INJ, ONCE, Priority: STAT, Dosing Weight 145.455 kg, Start date: 12/09/19 22:32:00 CDT, Stop date: 12/09/19 22:32:00 CDT, 0 [facility] NS 1,000 mL 2019-12-10 01:16:00 No 1,000 mL, Rate: 100 ml/hr, Infuse over: 10 hr, Route: IV, Dosing Weight 145.455 kg, Total Volume: 1,000, Start date: 12/09/19 20:16:00 CDT, Duration: 30 day, Stop date: 01/08/20 20:15:00 CDT, 2.75, m2, 0 [facility] Saline Flush 0.9% 2019-12-09 23:51:00 No Notes: (Same as: BD Posiflush) Faviola Mati Sodium Chloride 0.9% (Bolus) IV 2019-12-09 23:51:00 No 1,000 mL, 1000 ml/hr, Infuse Over: 1 hr, Route: IV, 1,000, Drug form: INJ, ONCE, Priority: STAT, Dosing Weight 145.455 kg, Start date: 12/09/19 18:51:00 CDT, Stop date: 12/09/19 18:51:00 CDT, 0 Faviola thompson Metformin hydrochloride 500 MG Oral Tablet 2019-12-09 23:16:00 Yes 500 mg = 1 tab, PO, Daily, 0 Refill(s) Kriss Thorne Fenofibrate 48 MG Oral Tablet 2019-12-09 23:15:00 Yes 48 mg = 1 tab, PO, Daily, 0 Refill(s) Faviola Lopezann allopurinol 300 mg oral tablet 2019-12-09 23:15:00 Yes 300 mg = 1 tab, PO, Daily, 0 Refill(s) Faviola lopez Triamcinolone Acetonide 1 MG/ML Topical Cream 2019-12-09 23:15:0 0 Yes 1 appl, TOP, BID, PRN Rash, 0 Refill(s) Faviola Lopezann Levothroid 50 mcg (0.05 mg) oral tablet 2019-12-09 23:15:00 Yes 50 microgram = 1 tab, PO, Daily, 0 Refill(s) Faviola Thorne atorvastatin 40 mg oral tablet 2019-12-09 23:15:00 Yes 40 mg = 1 tab, PO, Daily, 0 Refill(s) Faviola lopez amLODIPine 5 mg oral tablet 2019-12-09 23:14:00 Yes 5 mg = 1 tab, PO, Daily, 0 Refill(s) [facility] [place] losartan 50 mg oral tablet 2019-12-09 23:14:00 Yes See Instructions, 1 tab PO Daily, 0 Refill(s) Faviola lopez hydrochlorothiazide 12.5 mg oral tablet 2019-12-09 23:14:00 Yes 12.5 mg = 1 tab, PO, Daily, 0 Refill(s) Stacia Thorne Diclofenac Sodium 1 % Transdermal Gel Diclofenac Sodium 1 % Transdermal Gel 2018-07-11 00:00:00 Yes RUBI MEDINA M.D. QD APPLY SPARINGLY TO AFFECTED AREA(S) ONCE DAILY [facility] Meloxicam 7.5 MG Oral Tablet Meloxicam 7.5 MG Oral Tablet 2018-06-1 9 00:00:00 Yes RUBI MEDINA M.D. 1 QD TAKE 1 TABLET DAILY PRN pain [facility] Vital Signs Vital Name Observation Time Observation Value Comments Source Temperature Oral (F) 2019-12-19 21:00:00 98.5 F [facility] Heart Rate 2019-12-19 21:00:00 [facility] Respitory Rate 2019-12-19 21:00:00 [facility] Systolic (mm Hg) 2019-12-19 21:00:00 Norberto rial Mati Diastolic (mm Hg) 2019-12-19 21:00:00 [facility] Systolic (mm Hg) 2019-12-19 17:30:00 Norberto rial Mati Diastolic (mm Hg) 2019-12-19 17:30:00 [facility] [place] Temperature Oral (F) 2019-12-19 17:30:00 97.8 F [facility] Heart Rate 2019-12-19 17:30:00 [facility] Respitory Rate 2019-12-19 17:30:00 [facility] [place] Temperature Oral (F) 2019-12-19 13:00:00 97.8 F [facility] Heart Rate 2019-12-19 13:00:00 [facility] Respitory Rate 2019-12-19 13:00:00 [facility] Systolic (mm Hg) 2019-12-19 13:00:00 [facility]to [facility] [place] Diastolic (mm Hg) 2019-12-19 13:00:00 [facility] Height 2019-12-10 10:30:00 182.88 cm [facility] Weight 2019-12-10 10:30:00 [facility] BMI Calculated 2019-12-10 10:30:00 [facility] [place] Height 2019-12-09 23:03:00 182.88 cm [facility] BMI Calculated 2019-12-09 23:03:00 [facility] Weight 2019-12-09 23:03:00 [facility] Procedures This patient has no known procedures. Encounters Start Date/Time End Date/Time Encounter Type Admission Type Attendi [facility] Care Department Encounter ID Source 2019-12-09 23:57:00 Inpatient [facility] [id number] [facility] 2019-12-09 18:00:14 2019-12-19 17:30:00 Outpatient Loki Alvarenga [facility] [id number] 2018-07-11 15:00:00 2018-07-11 15:00:00 Appointment; RUBI MEDINA M.D. HUANG, EDDIE, M.D. [facility] [id number] [facility] Results Test Description Test Time Test Comments Results Result Comments Source CT ABDOMEN/PELVIS W 2020-03-06 18:51:00 [facility] [address] [address] Patient Name: REYES SMALL MR #: [id number] : 1960 Age/Sex: 59/M Req #: [id number] Adm Physician: Ordered by: MARILIN INFANTE MD Report #: [id number] Location: CT Room/Bed: Procedure: [id number] CT/CT ABDOMEN/PELVIS W Exam Date: 03/06/20 Exam Time: 1815 REPORT STATUS: Signed EXAM: CT Abdomen and Pelvis WITH contrast INDICATION: Metastatic colon cancer with bowel obstruction. COMPARISON: CT abdomen/pelvis dated 12/09/2019. MRI of the abdomen on 12/11/2019. TECHNIQUE: Abdomen and pelvis were scanned utilizing a multidetector helical scanner from the lung base to the pubic symphysis after administration of IV contrast. Coronal and sagittal reformations were obtained. Routine protocol was performed. Scan was performed when during portal venous phase. IV CONTRAST: 100 mL of Isovue 370 ORAL CONTRAST: None COMPLICATIONS: None RADIATION DOSE: Total DLP: 931.51 mGy*cm Estimated effective dose: (DLP x 0.015 x size factor) mSv CTDIvol has been reviewed. It is below the limits set by the Radiation Protocol Committee (RPC). Dose modulation, iterative reconstruction, and/or weight based adjustment of the mA/kV was utilized to reduce the radiation dose to as low as reasonably achievable. FINDINGS: LINES and TUBES: None. LOWER THORAX: Unremarkable HEPATOBILIARY: There are multiple hypodense, mildly enhancing irregular shaped masses in the liver. The largest in the right hepatic lobe measures approximately 8.0 x 6.0 cm. Another located in the caudate lobe measures approximately 7.5 x 4.7 cm. Additional smaller nodules are seen throughout the liver, for instance one on the lateral aspect of the right hepatic lobe which measures 2.7 x 2.8 cm. No biliary ductal dilation. GALLBLADDER: No radio-opaque stones or sludge. No wall thickening. SPLEEN: No splenomegaly. PANCREAS: No focal masses or ductal dilatation. ADRENALS: No adrenal nodules KIDNEYS/URETERS: Kidneys enhance symmetrically. No hydronephrosis. There is a small exophytic hypodensity in the midpole of the right kidney, too small to characterize by CT. No stones. GI TRACT: There is circumferential wall thickening of the distal sigmoid colon with pericolonic fat stranding and multiple prominent adjacent lymph nod es, the largest measuring up to 1.2 cm (series 2 image 71). The remainder of the large bowel and small bowel are normal. No abnormal distention or evidence of bowel obstruction. Appendix is normal. PELVIC ORGANS/BLADDER: Unremarkable. LYMPH NODES: There are multiple prominent mayur hepatis and paracaval lymph nodes. There are multiple enlarged lymph nodes in the thickened sigmoid colon described above. VESSELS: The distal thoracic aorta takes a tortuous course. The abdominal aorta and its major abdomen and pelvic branches have normal enhancement with mild atherosclerotic c alcification. PERITONEUM / RETROPERITONEUM: No free air or fluid. BONES: Unremarkable. SOFT TISSUES: Unremarkable. IMPRESSION: 1. Circumferential wall thickening of the distal sigmoid colon which likely represents area of known colon cancer. Adjacent pericolonic fat stranding likely reflects reactive changes. Prominent mesenteric lymph nodes, mayur hepatis and paracaval lymph nodes likely reflect metastasis. No evidence of bowel obstruction. 2. Multiple hypodense, mildly enhancing irregular shaped masses in the liver which likely represent metastatic lesions. Signed by: Karin Zaidi MD on 03/06/2020 7:31 PM Dictated By: KARIN ZAIDI MD 30 Transcribed By: RICHARD on 03/06/201930 COPY TO: MARILIN INFANTE MD CHEST 2 VIEWS 2020-03-06 17:05:00 [address] [place] [address] Patient Name: REYES SMALL MR #: [id number] : 1960 Age/Sex: 59/M Req #: [id number] Adm Physician: Ordered by: MARILIN INFANTE MD Report #: [id number] Location: CT Room/Bed: Procedure: [id number] DX/CHEST 2 VIEWS Exam Date: 03/06/20 Exam Time: 1630 REPORT STATUS: Signed EXAM: CHEST 2 VIEWS DATE: 03/06/2020 4:30 PM INDICATION: Colon cancer COMPARISON: None FINDINGS: The trachea is midline. The lungs are symmetrically expanded without evidence for large focal consolidation, pneumothorax, or significant pleural effusion. The cardiomediastinal silhouette and pulmonary vasculature are within normal limits. Atherosclerotic calcifications are noted within the thoracic aorta. No acute osseous abnormality is identified. The surrounding soft tissues are unremarkable. IMPRESSION: No acute cardiopulmonary process identified. Signed by: Dr. Evaristo Tobin MD on 03/06/2020 5:06 PM Dictated By: EVARISTO TOBIN MD 05 Transcribed By: RICHARD on 03/06/201705 COPY TO: MARILIN INFANTE MD CHEM PANEL 2019-12-19 10:38:00 329 Stacia Thorne CHEM PANEL 2019-12-19 10:38:00 87 [facility] [place] CHEM PANEL 2019-12-19 10:38:00 9 [facility] [place] CHEM PANEL 2019-12-19 10:38:00 0.80 [facility] [place] CHEM PANEL 2019-12-19 10:38:00 139 [facility] CHEM PANEL 2019-12-19 10:38:00 4.0 [facility] CHEM PANEL 2019-12-19 10:38:00 107 [facility] CHEM PANEL 2019-12-19 10:38:00 27 [facility] CHEM PANEL 2019-12-19 10:38:00 9.0 [facility] CHEM PANEL 2019-12-19 10:38:00 9.0 [facility] [place] CHEM PANEL 2019-12-19 10:38:00 99 [facility] CHEM PANEL 2019-12-19 10:38:00 2.4 [facility] HEMATOLOGY 2019-12-19 10:38:00 13.9 [facility] HEMATOLOGY 2019-12-19 10:38:00 42.9 [facility] CHEM PANEL 2019-12-18 08:02:00 92 [facility] [place] CHEM PANEL 2019-12-18 08:02:00 10 [facility] [place] CHEM PANEL 2019-12-18 08:02:00 0.85 [facility] CHEM PANEL 2019-12-18 08:02:00 138 [facility] CHEM PANEL 2019-12-18 08:02:00 3.9 [facility] [place] CHEM PANEL 2019-12-18 08:02:00 105 [facility] [place] CHEM PANEL 2019-12-18 08:02:00 27 [facility] [place] CHEM PANEL 2019-12-18 08:02:00 8.8 [facility] [place] CHEM PANEL 2019-12-18 08:02:00 9.9 [facility] [place] CHEM PANEL 2019-12-18 08:02:00 97 [facility] CHEM PANEL 2019-12-18 08:02:00 342 [facility] [place] CHEM PANEL 2019-12-17 08:11:00 336 [facility] [place] HEMATOLOGY 2019-12-17 08:11:00 7.8 [facility] HEMATOLOGY 2019-12-17 08:11:00 4.81 [facility] [place] HEMATOLOGY 2019-12-17 08:11:00 13.7 [facility] [place] HEMATOLOGY 2019-12-17 08:11:00 41.8 [facility] [place] HEMATOLOGY 2019-12-17 08:11:00 86.8 [facility] HEMATOLOGY 2019-12-17 08:11:00 Test Item MCH (test code = MCH) 28.4 pg 27.0-31.0 [facility] FrbulthKCHLEDFPWZ5123-86-37 08:11:0032.8[facility] 2019-12-17 08:11:0015.1[facility] XngpgwyFPBIUKIRYJ8202-56-07 08:11:71515Pgwhzpvc VcmmfugXBUDBGFJKP3123-65-00 08:11:007.5[facility] SvcsxslNDNUVFIEWW0387-47-36 08:11:0061.2[facility] IszitwaZPPFCCQZUQ0543-34-95 08:11:0022.6[facility] [place] PVDELFOQLR0001-29-24 08:11:0011.4[facility] VehlkysPSMQJWRWDI5271-78-41 08:11:00 3.7[facility] BspzlhzXQOZTBUOHT9677-94-52 08:11:001.1[facility]ann[facility]MATOLOGY 2019-12-17 08:11:004.8[facility] AmkklbxYZDKDDXPUX4629-94-15 08:11:001.8[facility] UupjkusCLFOZYZUGD4457-28-74 08:11:000.9[facility] UbcfgosRHATCLOIVQ8301-70-47 08:11:000.3[facility] UooxtpaYILROGYIYA9138-56-18 08:11:000.1[facility] HermannCHEM OQCUG4323-05-91 11:32:0092[facility] HermannCHEM KJATT5811-52-59 11:32:008[facility] HermannCHEM ZCYFO1306-73-35 11:32:000.99[facility]annCHEM LMEBR7606-60-14 11:32:53701Ehoufogc HermannCHEM MTOJG1628-86-37 11:32:004.2[facility] HermannCHEM QAXPI9977-39-59 11:32:44033Ewcihsow HermannCHEM YFPCW2648-81-73 11:32:0029 [facility]annCHE[facility] ZHQNH1378-56-83 11:32:009.7[facility] HermannCHEM PANEL 2019-12-14 11:32:009.2[facility] HermannCHEM XOLKQ5407-08-28 11:32:0084Mem[facility] HermannANEMIA PGXNX5169-07-83 20:21:61883Smvvgvel HermannANEMIA DNJMV3976-59-27 20:21:0028[facility] HermannANEMIA TRJCI6371-69-52 20:21:43446Zaulrlgl [place] ANEMIA BVRFP3279-42-27 20:21:38634Cesjwkpq HermannANEMIA IIBDO8034-54-66 20:21:008[facility] HermannCHEM WUEIL5924-30-30 10:46:00* Test Item Value Reference Range Interpretation Comments B/C Ratio (test code = B/C Ratio) 11 1 6-25 [facility]ann[facility] CVKZE9787-02-84 10:46:006.8[facility] HermannCHEM PANEL 2019-12-11 10:46:002.6[facility] HermannCHEM EVJPB8170-09-73 10:46:004.2[facility] HermannCHEM NZJGP0492-92-27 10:46:00* Test Item Value Reference Range Interpretation Comments A/G Ratio (test code = A/G Ratio) 0.6 1 0.7-1.6 [facility]annCHE[facility] OHMFP3706-63-85 10:46:0025[facility] HermannCHEM PANEL 2019-12-11 10:46:0021[facility] HermannCHEM XUVEE9190-60-41 10:46:0066[facility] HermannCHEM FDPYY9139-44-94 10:46:000.6[facility] HermannCHEM WIQQY5168-05-40 10:46:002.1[facility] DhegmjqHLUGRHLKLA6781-07-39 10:46:0074.1[facility] RAPRVOQSXO8843-65-07 10:46:009.7[facility] GresydpDJOTNFVJLE5297-78-68 10:46:00 13.7[facility] JitsnthPVWRSQTXVG2024-98-50 10:46:002.0[facility] HermannHEMATOLOGY 2019-12-11 10:46:000.5[facility] WlqofriTKSEXACLTT9776-79-16 10:46:0010.0[facility] RugtjrwZLLTMLCZDK2984-48-60 10:46:001.3[facility] MnpelygUBMIZPXUCT5025-34-57 10:46:001.8[facility] JkikiotGHTENHUMRG1684-76-99 10:46:000.3[facility] GBQGNXZLIX3071-27-18 10:46:000.1[facility] JbrdnbqYFTQQPJJWH6081-10-19 10:46:00 13.4[facility] TzlhwbfCWMYGERQNR7200-20-73 10:46:004.24[facility]annHEMATOLOGY 2019-12-11 10:46:0012.1[facility] QdrwiqrEHAYWZZFPU7244-59-16 10:46:0037.1[facility] GxbacxvCSUIHFZWDX4202-82-45 10:46:0087.6[facility] CrhdjodGKCFJGPYRS5162-29-03 10:46:00* Test Item Value Reference Range Interpretation Comments MCH (test code = MCH) 28.6 pg 27.0-31.0 [facility] HuczmbfVOKDLHEDNI9505-03-72 10:46:0032.6[facility]annHEMATOLOGY 2019-12-11 10:46:0015.0[facility] GfppzwwZMRNZGUTKM0514-64-77 10:46:04164Igpxixjw QbyctdtHUZUNFUVZI6830-53-78 10:46:008.0[facility] HyzliubYRBLDUOTQY8722-53-97 11:03:0086.5[facility] SqlthilEOCOWVKWGQ6788-77-49 11:03:005.3[facility] RWSBCAISZT5321-62-76 11:03:008.0[facility] YfazbbvEACZDORQBR0233-56-79 11:03:000.2 [facility] GzmbizwNRVLIFAGXT1946-64-90 11:03:0016.8[facility] HermannHEMATOLOGY 2019-12-10 11:03:001.0[facility] EcwvqrpANSCXJCSAE3605-59-82 11:03:001.6[facility] ShkirueFLKUISCRRJ6125-23-13 11:03:0019.4[facility] AziaonhWQAZSLMAFB2081-54-75 11:03:004.44[facility] BlthbghYFSXRNZXEW2819-36-65 11:03:0087.3[facility] LJPGZDLRBL9002-71-20 11:03:00* Test Item Value Reference Range Interpretation Comments MCH (test code = MCH) 27.9 pg 27.0-31.0 [facility] WoahsjiJHWBWOLVTL0164-30-21 11:03:0032.0[facility]annHEMATOLOGY 2019-12-10 11:03:0014.9[facility] KyolmgzNASCXINPAM3453-05-03 11:03:00130Gbqfkqtl XcfvmmxYEDITUGZJZ7113-28-64 11:03:007.9[facility]annSPECIAL CHEMISTRY 2019-12-10 11:03:006.1[facility] HermannTUMOR MWDYYSE5697-67-74 11:03:001.3 [facility]annTUMOR UWYJUIR3176-58-61 11:03:43662.9[facility] HermannDRUG SCREEN 2019-12-10 05:34:00Negative *NA*(12/10/19 12:34 AM)[facility]annDRUG SCREEN 2019-12-10 05:34:00Negative *NA*(12/10/19 12:34 AM)[facility]CREEN 2019-12-10 05:34:00Negative *NA*(12/10/19 12:34 AM)[facility] 2019-12-10 05:34:00Negative *NA*(12/10/19 12:34 AM)[facility]annDR[facility]CREEN 2019-12-10 05:34:00Negative *NA*(12/10/19 12:34 AM)[facility] 05:34:00Negative *NA*(12/10/19 12:34 AM)[facility] 2019-12-10 05:34:00Negative *NA*(12/10/19 12:34 AM)[facility] 2019-12-10 05:34:00See Note (12/10/19 12:34 AM)[facility] 2019-12-10 05:34:00Slight *ABN*(12/10/19 12:34 AM)[facility] 2019-12-10 05:34:00* Test Item Value Reference Range Interpretation Comments UA Spec Grav (test code = UA Spec Grav) 1.021 1 [facility] [id number] 05:34:00* Test Item Value Reference Range Interpretation Comments UA pH (test code = UA pH) 5.0 1 5.0-8.0 [facility] [id number] 05:34:00Negative *NA*(12/10/19 12:34 AM)[facility] [id number] 05:34:00Negative (12/10/19 12:34 AM) [facility] [id number] 05:34:002.0[facility] [id number] 05:34:00Negative (12/10/19 12:34 AM)[facility] [id number] 05:34:00Negative (12/10/19 12:34 AM)[facility] [id number] 05:34:001[facility] HRNKL9880-34-18 05:34:003 [facility] QWTHK1313-93-01 05:34:0018[facility] CHEM 2019-12-10 05:34:006[facility] LHYL2403-75-55 05:34:06809.00[facility] NvjsvjbEEOQCZRHKK0662-47-92 03:51:00Not Detected (12/09/19 10:51 PM)[facility] LDJXLYFNAY3617-13-37 01:15:00Not Detected (12/09/19 8:15 PM) [facility] EKFYBYHDTE0770-39-86 01:15:00Not Detected (12/09/19 8:15 PM)[facility] MMEULDMIGP2737-36-11 01:15:00Not Detected (12/09/19 8:15 PM)[facility] PPSQIMIKQJ1574-94-08 01:15:00Detected *ABN*(12/09/19 8:15 PM)[facility] SDSJWIFGVF9110-44-44 01:15:00Not Detected (12/09/19 8:15 PM)[facility] XSRAYPLIOG8175-49-03 01:15:00Not Detected (12/09/19 8:15 PM)[facility] 2019-12-10 01:15:00Not Detected (12/09/19 8:15 PM)[facility] VTUGQDVQYS7400-98-67 01:15:00Not Detected (12/09/19 8:15 PM)[facility] AUQDDXHSOR8662-24-12 01:15:00Not Detected (12/09/19 8:15 PM)[facility] YXDLFFHGJK3349-90-45 01:15:00Not Detected (12/09/19 8:15 PM) [facility] HTWYSDMQZO5214-80-44 01:15:00Detected *ABN*(12/09/19 8:15 PM)[facility] LQRPEHTTFC2153-72-24 01:15:00Not Detected (12/09/19 8:15 PM)[facility] UCUFZODVIB3881-16-03 01:15:00Not Detected (12/09/19 8:15 PM)[facility] WBKWMEMBQV0266-66-14 01:15:00Not Detected (12/09/19 8:15 PM)[facility] 2019-12-10 01:15:00Not Detected (12/09/19 8:15 PM)[facility] ENZYMES 2019-12-10 00:34:85649[facility]ybwofr HermannCARDIAC IWWQUEM6981-89-16 00:34:00<0.02 [facility]CHE[facility] [id number] 00:34:008.3[facility]annCHE[facility] PANEL 2019-12-10 00:34:003.1[facility] MNXCW8621-21-50 00:34:0032[facility]annCHE[facility] VFVLP2246-90-75 00:34:0027[facility]annCHE[facility] [id number] 00:34:0084[facility]CHE[facility] EPEKZ3700-05-33 00:34:001.0[facility]annCHE[facility] MXMZK4154-77-53 00:34:00* Test Item Value Reference Range Interpretation Comments B/C Ratio (test code = B/C Ratio) 10 1 6-25 [facility] [id number] 00:34:005.2[facility]annCHE[facility] PANEL 2019-12-10 00:34:00* Test Item Value Reference Range Interpretation Comments A/G Ratio (test code = A/G Ratio) 0.6 1 0.7-1.6 [facility] [id number] 00:34:002.2[facility] PANEL 2019-12-10 00:34:002.6[facility]annCHE[facility] SPEHX4062-60-21 00:34:001.2[facility] UuseqolHWWTXDJPXN6744-39-68 00:34:00* Test Item Value Reference Range Interpretation Comments PT (test code = PT) 14.6 s 12.0-14.7 [facility] BvqkdzsXWLJNIFNBB0013-18-13 00:34:00* Test Item Value Reference Range Interpretation Comments INR (test code = INR) 1.13 1 0.85-1.17 [facility] SymxotoXBOBQMJMNL2633-43-28 00:34:00* Test Item Value Reference Range Interpretation Comments PTT (test code = PTT) 27.9 s 22.9-35.8 [facility] MczckhvOASGMEQZWV2668-24-59 00:34:002.09[facility]annHEMATOLOGY 2019-12-10 00:34:00Normal (12/09/19 7:34 PM)[facility] MznnxrcLYRKSNZYAG2334-81-51 00:34:00Normal (12/09/19 7:34 PM)[facility] QbwtxojYZUEQCTPYU5772-72-40 00:34:000.1 [facility] UhppnmuHXSSUYXSOC9550-33-00 00:34:000.1[facility] [place][U] XRAY KNEE 4 OR MORE VWS BILATERAL [id number] 15:42:00Images acquired, not reported on this accession number.[facility]
--- OUTSIDE RECORDS SUMMARY | 2020-03-18 12:55 | XMS REPORT | Summary of Care ---
Author Author [facility] Organization [facility] Address Unknown Phone Unavailable Encounter ILIANA Layton(VIKKI) [id number] Date(s): 12/09/19 - 12/19/19 [facility] [address] [place] [address]- [phone] Discharge Disposition: Home or Self Care Attending Physician: Vicente Alvarenga MD Admitting Physician: Mahnaz Hunter MD Vital Signs 1 2 3 Most recent to oldest [Reference Range]: 182.88 cm (12/10/19 5:30 AM) 182.88 cm (12/09/19 6:03 PM) Height 98.5 DegF (12/19/19 4:00 PM) 97.8 DegF (12/19/19 12:30 PM) 97.8 DegF (12/19/19 8:00 AM) Temperature Oral [96.4-99.1 DegF] 124/87 mmHg (12/19/19 4:00 PM) 139/90 mmHg (12/19/19 12:30 PM) 132/88 mmHg (12/19/19 8:00 AM) Blood Pressure [90-140/60-90 mmHg] 18 BRMIN (12/19/19 4:00 PM) 18 BRMIN (12/19/19 12:30 PM) 18 BRMIN (12/19/19 8:00 AM) Respiratory Rate [14-20 BRMIN] 100 bpm (12/19/19 4:00 PM) 84 bpm (12/19/19 12:30 PM) 89 bpm (12/19/19 8:00 AM) Peripheral Pulse Rate [60-100 bpm] 145.455 kg (12/10/19 5:30 AM) 145.455 kg (12/09/19 6:03 PM) Weight 43.49 m2 (12/10/19 5:30 AM) 43.49 m2 (12/09/19 6:03 PM) Body Mass Index Problem List No data available for this section Allergies, Adverse Reactions, Alerts No Known Allergies Medications acetaminophen 1,000 mg, 2 tab, Route: PO, Drug form: TAB, ONCE, Dosing Weight 145.455, kg, Sta rt date: 12/09/19 22:51:00 CDT, Stop date: 12/09/19 22:51:00 CDT, 0 Start Date: 12/09/19 Stop Date: 12/10/19 Status: Discontinued acetaminophen 650 mg, 2 tab, Route: PO, Drug form: TAB, Q4H, Dosing Weight 145.455, kg, PRN Pa in 1-3/Temp > 100.4 F, Start date: 12/10/19 0:21:00 CDT, Duration: 30 day, Stop date: 01/09/20 0:20:00 CDT, 0 Notes: Do not exceed 4 gm/day. (Same as: Tylenol) Start Date: 12/10/19 Stop Date: 12/19/19 Status: Discontinued acetaminophen-codeine 300 mg-30 mg oral tablet 1 tab, PO, Q6H, PRN Pain Score 7-10, X 3 day, # 12 tab, 0 Refill(s) Start Date: 12/19/19 Stop Date: 12/22/19 Status: Ordered allopurinol 300 mg, 1 tab, Route: PO, Drug form: TAB, Daily, Dosing Weight 145.455, kg, Star t date: 12/10/19 9:00:00 CDT, Duration: 30 day, Stop date: 01/08/20 9:00:00 CDT, 0 Notes: (Same as: Zyloprim) Start Date: 12/10/19 Stop Date: 12/19/19 Status: Discontinued allopurinol 300 mg oral tablet 300 mg = 1 tab, PO, Daily, 0 Refill(s) Start Date: 12/09/19 Status: Ordered amLODIPine 10 mg, 2 tab, Route: PO, Drug form: TAB, Daily, Dosing Weight 145.455, kg, Prior ity: NOW, Start date: 12/12/19 17:22:00 CDT, Duration: 30 day, Stop date: 9:00:00 CDT, 0 Notes: (Same as: Norvasc) Start Date: 12/12/19 Stop Date: 12/19/19 Status: Discontinued amLODIPine 5 mg, 1 tab, Route: PO, Drug form: TAB, ONCE, Dosing Weight 145.455, kg, Priorit y: NOW, Start date: 12/15/19 16:12:00 CDT, Stop date: 12/15/19 16:12:00 CDT, 0 Notes: (Same as: Norvasc) Start Date: 12/15/19 Stop Date: 12/15/19 Status: Completed amLODIPine 5 mg oral tablet 5 mg = 1 tab, PO, Daily, 0 Refill(s) Start Date: 12/09/19 Status: Ordered Ativan 1 mg, 0.5 mL, Route: IVP, Drug form: INJ, ONCE, Dosing Weight 145.455, kg, PRN A nxiety, Start date: 12/11/19 15:59:00 CDT, 0 Notes: (Same as: Ativan) Start Date: 12/11/19 Stop Date: 12/11/19 Status: Completed atorvastatin 40 mg, 1 tab, Route: PO, Drug form: TAB, Daily, Dosing Weight 145.455, kg, Start date: 12/10/19 9:00:00 CDT, Duration: 30 day, Stop date: 01/08/20 9:00:00 CDT, 0 Notes: (Same as: Lipitor) Start Date: 12/10/19 Stop Date: 12/19/19 Status: Discontinued atorvastatin 40 mg oral tablet 40 mg = 1 tab, PO, Daily, 0 Refill(s) Start Date: 12/09/19 Status: Ordered azithromycin + Sodium Chloride 0.9% IV 250 mL 500 mg, Route: IVPB, ONCE, Dosing Weight 145.455, kg, Priority: STAT, Start date : 12/09/19 22:59:00 CDT, Stop date: 12/09/19 22:59:00 CDT, ABX Indication: Pneum onia, 0 Notes: (Same As: Zithromax IV) Start Date: 12/09/19 Stop Date: 12/10/19 Status: Completed cefTRIAXone + sterile water 10 mL 1 gm, Route: IVP, ONCE, Dosing Weight 145.455, kg, Priority: STAT, Start date: 0 12/09/19 22:59:00 CDT, Stop date: 12/09/19 22:59:00 CDT, ABX Indication: Pneumoni a, 0 Notes: (Same As: Rocephin).Use with 100 mL NS and infuse over 30 min MEDICA TION WASTE Product Size: 1000 mgProduct Wasted: ___ mg Start Date: 12/09/19 Stop Date: 12/10/19 Status: Completed cefTRIAXone + sterile water 20 mL 2 gm, Route: IVP, [id number], Dosing Weight 145.455, kg, Start date: 12/13/19 21:00 :00 CDT, Duration: 10 day, Stop date: 12/22/19 21:00:00 CDT, ABX Indication: Aristeo teremia, 0 Notes: (Same As: Rocephin).Use with 100 mL NS and infuse over 30 min MEDICA TION WASTE Product Size: 2000 mgProduct Wasted: ___ mg Start Date: 12/13/19 Stop Date: 12/19/19 Status: Discontinued cefTRIAXone 2 g injection 2 gm, IV, Q24H, X 18 day, # 18 ea, 0 Refill(s), other Start Date: 12/20/19 Stop Date: 01/07/20 Status: Ordered Cipro 400 mg, 200 mL, Route: IVPB, Drug form: INJ, [id number], Dosing Weight 145.455, kg, Start date: 12/10/19 9:00:00 CDT, Duration: 14 day, Stop date: 12/23/19 21:00:00 CDT, ABX Indication: Intra-abdominal Infection, 0 Notes: Do not refrigerate Start Date: 12/10/19 Stop Date: 12/11/19 Status: Discontinued Dextrose 50% Syringe (D50W) 12.5 gm, 25 mL, Route: IVP, Drug Form: INJ, Dosing Weight 145.455, kg, PRN, PRN Blood Glucose Results, Start date: 12/10/19 0:36:00 CDT, Duration: 30 day, Stop date: 01/09/20 0:35:00 CDT, 0 Start Date: 12/10/19 Stop Date: 12/19/19 Status: Discontinued Dextrose 50% Syringe (D50W) 25 gm, 50 mL, Route: IVP, Drug Form: INJ, Dosing Weight 145.455, kg, PRN, PRN Bl ood Glucose Results, Start date: 12/10/19 0:36:00 CDT, Duration: 30 day, Stop da te: 01/09/20 0:35:00 CDT, 0 Start Date: 12/10/19 Stop Date: 12/19/19 Status: Discontinued docusate 100 mg, Route: PO, BID, Dosing Weight 145.455, kg, Start date: 12/16/19 9:00:00 CDT, Duration: 30 day, Stop date: 01/14/20 17:00:00 CDT Start Date: 12/16/19 Stop Date: 12/15/19 Status: Deleted docusate 100 mg, 1 cap, Route: PO, Drug form: CAP, BID, Dosing Weight 145.455, kg, PRN as needed for constipation, Start date: 12/10/19 21:00:00 CDT, Duration: 30 day, S top date: 01/09/20 20:59:00 CDT, 0 Notes: (Same as: Colace) (Do Not Crush) Start Date: 12/10/19 Stop Date: 12/19/19 Status: Discontinued Dulcolax Laxative 10 mg, 2 tab, Route: PO, Drug form: ECTAB, ONCE, Dosing Weight 145.455, kg, Star t date: 12/10/19 21:00:00 CDT, Stop date: 12/10/19 21:00:00 CDT, 0 Start Date: 12/10/19 Stop Date: 12/10/19 Status: Completed enoxaparin 40 mg, 0.4 mL, Route: SUB-Q, Drug form: INJ, [id number], Dosing Weight 145.455, kg , Consider for obese patients, Start date: 12/10/19 1:00:00 CDT, Duration: 30 da y, Stop date: 01/08/20 6:00:00 CDT, 0 Notes: (Same as: Lovenox) Start Date: 12/10/19 Stop Date: 12/19/19 Status: Discontinued fenofibrate 48 mg oral tablet 48 mg = 1 tab, PO, Daily, 0 Refill(s) Start Date: 12/09/19 Status: Ordered fenofibrate 48 mg oral tablet 48 mg, 1 tab, Route: PO, Drug form: TAB, Daily, Dosing Weight 145.455, kg, Start date: 12/10/19 9:00:00 CDT, Duration: 30 day, Stop date: 01/08/20 9:00:00 CDT, 0 Notes: (Same as: Tricor) Start Date: 12/10/19 Stop Date: 12/19/19 Status: Discontinued glucagon 1 mg, Route: IM, Drug form: PDR/INJ, PRN, Dosing Weight 145.455, kg, PRN Blood G lucose Results, Start date: 12/10/19 0:36:00 CDT, Duration: 30 day, Stop date: 0 01/09/20 0:35:00 CDT, 0 Start Date: 12/10/19 Stop Date: 12/19/19 Status: Discontinued hydrALAZINE 10 mg, 0.5 mL, Route: IVP, Drug form: INJ, Q6H, Dosing Weight 145.455, kg, PRN H ypertension, Start date: 12/12/19 17:23:00 CDT, Duration: 30 day, Stop date: 17:22:00 CDT, 0 Notes: (Same as: Apresoline)Push over 5 minutes Start Date: 12/12/19 Stop Date: 12/19/19 Status: Discontinued hydrochlorothiazide 12.5 mg oral tablet 12.5 mg = 1 tab, PO, Daily, 0 Refill(s) Start Date: 12/09/19 Status: Ordered insulin lispro 1 unit, 0.01 mL, Route: SUB-Q, Drug form: SOLN, Sliding Scale, Dosing Weight 145 .455, kg, PRN Blood Glucose Results, Start date: 12/10/19 0:36:00 CDT, Duration: 30 day, Stop date: 01/09/20 0:35:00 CDT, 0 Notes: (Same as: Humalog) Roll in palms of hands gently; Do not shake vigorously . WASTE: F/P - Black; E - Municipal Trash BinStable for 28 days at room tempera ture.Expires in days from Date Start Date: 12/10/19 Stop Date: 12/19/19 Status: Discontinued insulin lispro 2 unit, 0.02 mL, Route: SUB-Q, Drug form: SOLN, Sliding Scale, Dosing Weight 145 .455, kg, PRN Blood Glucose Results, Start date: 12/10/19 0:36:00 CDT, Duration: 30 day, Stop date: 01/09/20 0:35:00 CDT, 0 Notes: (Same as: Humalog) Roll in palms of hands gently; Do not shake vigorously . WASTE: F/P - Black; E - Municipal Trash BinStable for 28 days at room [facility].Expires in days from Date Start Date: 12/10/19 Stop Date: 12/19/19 Status: Discontinued insulin lispro 3 unit, 0.03 mL, Route: SUB-Q, Drug form: SOLN, Sliding Scale, Dosing Weight 145 .455, kg, PRN Blood Glucose Results, Start date: 12/10/19 0:36:00 CDT, Duration: 30 day, Stop date: 01/09/20 0:35:00 CDT, 0 Notes: (Same as: Humalog) Roll in palms of hands gently; Do not shake vigorously . WASTE: F/P - Black; E - Municipal Trash BinStable for 28 days at room [facility].Expires in days from Date Start Date: 12/10/19 Stop Date: 12/19/19 Status: Discontinued insulin lispro 4 unit, 0.04 mL, Route: SUB-Q, Drug form: SOLN, Sliding Scale, Dosing Weight 145 .455, kg, PRN Blood Glucose Results, Start date: 12/10/19 0:36:00 CDT, Duration: 30 day, Stop date: 01/09/20 0:35:00 CDT, 0 Notes: (Same as: Humalog) Roll in palms of hands gently; Do not shake vigorously . WASTE: F/P - Black; E - Municipal Trash BinStable for 28 days at room [facility].Expires in days from Date Start Date: 12/10/19 Stop Date: 12/19/19 Status: Discontinued insulin lispro 5 unit, 0.05 mL, Route: SUB-Q, Drug form: SOLN, Sliding Scale, Dosing Weight 145 .455, kg, PRN Blood Glucose Results, Start date: 12/10/19 0:36:00 CDT, Duration: 30 day, Stop date: 01/09/20 0:35:00 CDT, 0 Notes: (Same as: Humalog) Roll in palms of hands gently; Do not shake vigorously . WASTE: F/P - Black; E - Municipal Trash BinStable for 28 days at room tempera ture.Expires in days from Date Start Date: 12/10/19 Stop Date: 12/19/19 Status: Discontinued Levothroid 50 microgram, 1 tab, Route: PO, Drug form: TAB, Daily, Dosing Weight 145.455, kg , Start date: 12/10/19 6:30:00 CDT, Duration: 30 day, Stop date: 01/08/20 6:30:0 0 CDT, 0 Notes: Take 1 hour before or 2 hours after meal; Enteral feeds may interefere wi th the absorption of this medication.(Same as:Levothroid, Synthroid) Start Date: 12/10/19 Stop Date: 12/19/19 Status: Discontinued Levothroid 50 mcg (0.05 mg) oral tablet 50 microgram = 1 tab, PO, Daily, 0 Refill(s) Start Date: 12/09/19 Status: Ordered lisinopril 5 mg, 1 tab, Route: PO, Drug form: TAB, Daily, Dosing Weight 145.455, kg, Start date: 12/18/19 9:00:00 CDT, Duration: 30 day, Stop date: 01/16/20 9:00:00 CDT, 0 Notes: (Same as: Prinivil, Zestril) Start Date: 12/18/19 Stop Date: 12/19/19 Status: Discontinued losartan 50 mg oral tablet See Instructions, 1 tab PO Daily, 0 Refill(s) Start Date: 12/09/19 Status: Ordered magnesium citrate 1.745 g/30 mL oral liquid 300 ml, Route: PO, Drug Form: LIQ, Dosing Weight 145.455, kg, ONCE, Start date: 12/16/19 16:19:00 CDT, Stop date: 12/16/19 16:19:00 CDT, 0 Notes: (Same as: Citrate of Magnesia)Concentration: 1.745 gm / 30 mL Start Date: 12/16/19 Stop Date: 12/16/19 Status: Completed metFORMIN 500 mg oral tablet 500 mg = 1 tab, PO, Daily, 0 Refill(s) Start Date: 12/09/19 Status: Ordered metroNIDAZOLE 500 mg, 100 mL, Route: IVPB, Drug form: INJ, ONCE, Dosing Weight 145.455, kg, Pr iority: STAT, Start date: 12/09/19 23:00:00 CDT, Stop date: 12/09/19 23:00:00 CD T, ABX Indication: Intra-abdominal Infection, 0 Notes: (Same as: Flagmadai) Avoid alcohol. Start Date: 12/09/19 Stop Date: 12/10/19 Status: Completed metroNIDAZOLE 500 mg, 100 mL, Route: IVPB, Drug form: INJ, [id number], Dosing Weight 145.455, kg, Priority: STAT, Start date: 12/10/19 0:33:00 CDT, Duration: 5 day, Stop date: 17:00:00 CDT, ABX Indication: Intra-abdominal Infection, 0 Notes: (Same as: Flagyl) Avoid alcohol. Start Date: 12/10/19 Stop Date: 12/11/19 Status: Discontinued MiraLax 17 gm, 1 pkt, Route: PO, Drug form: PWDR, Daily, Dosing Weight 145.455, kg, Star t date: 12/20/19 9:00:00 CDT, Duration: 30 day, Stop date: 01/18/20 9:00:00 CDT, 0 Notes: Dissolve in 8 oz of water or juice.(Same as: Miralax) Start Date: 12/20/19 Stop Date: 12/19/19 Status: Canceled MiraLax oral powder for reconstitution 17 gm, PO, Daily, PRN Constipation, # 527 gm, 0 Refill(s), Pharmacy: [id number] Start Date: 12/19/19 Status: Ordered morphine Sulfate 2 mg, 1 mL, Route: IVP, Drug form: INJ, Q4H, Dosing Weight 145.455, kg, PRN Pain Score 7-10, Start date: 12/10/19 9:01:00 CDT, Duration: 30 day, Stop date: 12/22 03/12 9:00:00 CDT, 0 Notes: (Same as:MORPhine Sulfate) Start Date: 12/10/19 Stop Date: 12/19/19 Status: Discontinued [place] 5/325 oral tablet 1 tab, Route: PO, Drug Form: TAB, Dosing Weight 145.455, kg, Q6H, PRN Pain Score 4-6, Start date: 12/10/19 9:01:00 CDT, Duration: 30 day, Stop date: 01/09/20 9: 00:00 CDT, 0 Notes: (Same as: [place] 325/5) Do not exceed 4gm/day of acetaminophen. Start Date: 12/10/19 Stop Date: 12/19/19 Status: Discontinued NS (Bolus) IV 1,000 mL, 1,000 ml/hr, Infuse Over: 1 hr, Route: IV, 1,000, Drug form: INJ, ONCE , Priority: STAT, Dosing Weight 145.455 kg, Start date: 12/09/19 22:32:00 CDT, S top date: 12/09/19 22:32:00 CDT, 0 Start Date: 12/09/19 Stop Date: 12/09/19 Status: Completed NS (Bolus) IV 1,000 mL, 1,000 ml/hr, Infuse Over: 1 hr, Route: IV, 1,000, Drug form: INJ, ONCE , Priority: STAT, Dosing Weight 145.455 kg, Start date: 12/10/19 0:28:00 CDT, St op date: 12/10/19 0:28:00 CDT, 0 Start Date: 12/10/19 Stop Date: 12/10/19 Status: Discontinued NS 1,000 mL 1,000 mL, Rate: 100 ml/hr, Infuse over: 10 hr, Route: IV, Dosing Weight 145.455 kg, Total Volume: 1,000, Start date: 12/09/19 20:16:00 CDT, Duration: 30 day, St op date: 01/08/20 20:15:00 CDT, 2.75, m2, 0 Start Date: 12/09/19 Stop Date: 12/10/19 Status: Discontinued ondansetron 4 mg, 2 mL, Route: IVP, Drug form: INJ, Q8H, Dosing Weight 145.455, kg, PRN Naus ea & Vomiting, Start date: 12/10/19 0:21:00 CDT, Duration: 30 day, Stop date: 01/09/20 0:20:00 CDT, 0 Notes: (Same as: Zofran) MEDICATION WASTE Product Size: 4 mgProduct Was chai: ___ mg Start Date: 12/10/19 Stop Date: 12/19/19 Status: Discontinued Rocephin + sterile water 10 mL 1 gm, Route: IVP, [id number], Dosing Weight 145.455, kg, Start date: 12/11/19 0:00: 00 CDT, Duration: 10 day, Stop date: 12/20/19 0:00:00 CDT, ABX Indication: Intra -abdominal Infection, 0 Notes: (Same As: Rocephin).Use with 100 mL NS and infuse over 30 min MEDICA TION WASTE Product Size: 1000 mgProduct Wasted: ___ mg Start Date: 12/11/19 Stop Date: 12/10/19 Status: Canceled Rocephin + sterile water 20 mL 2 gm, Route: IV, [id number], Dosing Weight 145.455, kg, Start date: 12/19/19 17:00: 00 CDT, Duration: 1 day, Stop date: 12/19/19 17:00:00 CDT, ABX Indication: Intra -abdominal Infection, 0 Notes: (Same As: Rocephin).Use with 100 mL NS and infuse over 30 min MEDICA TION WASTE Product Size: 2000 mgProduct Wasted: ___ mg Start Date: 12/19/19 Stop Date: 12/19/19 Status: Completed Saline Flush 0.9% 10 mL, Route: IVP, Drug Form: INJ, Dosing Weight 145.455, kg, PRN, PRN Line Flus h, Start date: 12/09/19 18:51:00 CDT, Duration: 30 day, Stop date: 01/08/20 18:5 0:00 CDT, 0 Notes: (Same as: BD Posiflush) Start Date: 12/09/19 Stop Date: 12/19/19 Status: Discontinued Saline Flush 0.9% 10 ml, Route: IVP, Drug Form: INJ, Dosing Weight 145.455, kg, PRN, PRN Line Flus h, Start date: 12/10/19 0:33:00 CDT, Duration: 30 day, Stop date: 01/09/20 0:32: 00 CDT, 0 Notes: (Same as: BD Posiflush) Start Date: 12/10/19 Stop Date: 12/19/19 Status: Discontinued senna 8.6 mg, 1 tab, Route: PO, Drug Form: TAB, Dosing Weight 145.455, kg, BID, PRN as needed for constipation, Start date: 12/10/19 21:00:00 CDT, Duration: 30 day, S top date: 01/09/20 20:59:00 CDT, 0 Notes: (Same as: Senokot) Start Date: 12/10/19 Stop Date: 12/19/19 Status: Discontinued Sodium Chloride 0.9% (Bolus) IV 1,000 mL, 1000 ml/hr, Infuse Over: 1 hr, Route: IV, 1,000, Drug form: INJ, ONCE, Priority: STAT, Dosing Weight 145.455 kg, Start date: 12/09/19 18:51:00 CDT, St op date: 12/09/19 18:51:00 CDT, 0 Start Date: 12/09/19 Stop Date: 12/09/19 Status: Completed Sodium Chloride 0.9% IV 1,000 mL 1,000 mL, Rate: 125 ml/hr, Infuse over: 8 hr, Route: IV, Dosing Weight 145.455 k g, Total Volume: 1,000, Start date: 12/10/19 0:33:00 CDT, Duration: 30 day, Stop date: 01/09/20 0:32:00 CDT, 2.75, m2, 0 Start Date: 12/10/19 Stop Date: 12/11/19 Status: Discontinued triamcinolone topical 0.1% cream 1 appl, TOP, BID, PRN Rash, 0 Refill(s) Start Date: 12/09/19 Status: Ordered triamcinolone topical 0.1% cream 1 appl, Route: TOP, BID, Drug form: CRM, PRN Rash, Start date: 12/10/19 0:35:00 CDT, Duration: 30 day, Stop date: 01/09/20 0:34:00 CDT, 0 Notes: (triamcinolone acetonide 0.1% 15 gm top CRM)(Same As: Kenalog) Start Date: 12/10/19 Stop Date: 12/19/19 Status: Discontinued Tylenol 1,000 mg, 2 tab, Route: PO, Drug form: TAB, ONCE, Dosing Weight 145.455, kg, Franchesca ority: STAT, Start date: 12/09/19 22:45:00 CDT, Stop date: 12/09/19 22:45:00 CDT , 0 Start Date: 12/09/19 Stop Date: 12/09/19 Status: Completed Zofran 4 mg, Route: IVP, Drug form: INJ, ONCE, Dosing Weight 145.455, kg, Priority: STA T, Start date: 12/09/19 22:54:00 CDT, Stop date: 12/09/19 22:54:00 CDT Start Date: 12/09/19 Stop Date: 12/09/19 Status: Completed Zosyn + Sodium Chloride 0.9% IV 100 mL 3.375 gm, Route: IVPB, [id number], Dosing Weight 145.455, kg, CrCl >= 20 ml/min infuse over 4 hours, Start date: 12/11/19 15:00:00 CDT, Duration: 7 day, Stop date: 12/18/19 7:00:00 CDT, ABX Indication: Intra-abdominal Infection, 0 Notes: (Same as: Zosyn)Dosing based on Piperacillin component MEDICATION [place] ADINA Product Size: 3375 mgProduct Wasted: ___ mg Start Date: 12/11/19 Stop Date: 12/13/19 Status: Discontinued Results 1 2 3 Most recent to oldest [Reference Range]: 4.8 K/CMM (12/17/19 3:11 AM) 10.0 K/CMM *HI* (12/11/19 5:46 AM) 16.8 K/CMM *HI* (12/10/19 6:03 AM) Neutrophils # [1.5-8.1 K/CMM] 1.8 K/CMM (12/17/19 3:11 AM) 1.3 K/CMM (12/11/19 5:46 AM) 1.0 K/CMM (12/10/19 6:03 AM) Lymphocytes # [1.0-5.5 K/CMM] 0.9 K/CMM *HI* (12/17/19 3:11 AM) 1.8 K/CMM *HI* (12/11/19 5:46 AM) 1.6 K/CMM *HI* (12/10/19 6:03 AM) Monocytes # [0.0-0.8 K/CMM] 0.3 K/CMM (12/17/19 3:11 AM) 0.3 K/CMM (12/11/19 5:46 AM) Eosinophils # [0.0-0.5 K/CMM] 0.1 K/CMM (12/17/19 3:11 AM) 0.1 K/CMM (12/11/19 5:46 AM) 0.1 K/CMM (12/09/19 7:34 PM) Basophils # [0.0-0.2 K/CMM] Normal (12/09/19 7:34 PM) Plt Morph [Normal] Not Detected (12/09/19 8:15 PM) E. faecalis [Not Detected] Not Detected (12/09/19 8:15 PM) E. faecium [Not Detected] Not Detected (12/09/19 8:15 PM) Listeria spp. [Not Detected] Not Detected (12/09/19 8:15 PM) mecA Methicillin Resistance [Not Detected] Not Detected (12/09/19 8:15 PM) S. agalactiae [Not Detected] Detected *ABN* (12/09/19 8:15 PM) S. anginosus grp [Not Detected] Not Detected (12/09/19 8:15 PM) S. aureus [Not Detected] Not Detected (12/09/19 8:15 PM) S. epidermidis [Not Detected] Not Detected (12/09/19 8:15 PM) S. lugdunensis [Not Detected] Not Detected (12/09/19 8:15 PM) S. pneumoniae [Not Detected] Not Detected (12/09/19 8:15 PM) S. pyogenes [Not Detected] Not Detected (12/09/19 8:15 PM) Staphylococcus spp. [Not Detected] Detected *ABN* (12/09/19 8:15 PM) Streptococcus spp. [Not Detected] Not Detected (12/09/19 8:15 PM) Joaquin Vancomycin Resistance [Not Detected] Not Detected (12/09/19 8:15 PM) vanB Vancomycin Resistance [Not Detected] 99 mL/min/1.73m2 1 *NA* (12/19/19 5:38 AM) 97 mL/min/1.73m2 2 *NA* (12/18/19 3:02 AM) 84 mL/min/1.73m2 3 *NA* (12/14/19 6:32 AM) eGFR See Note (12/10/19 12:34 AM) UDS Note 8 % *LOW* (12/11/19 3:21 PM) % Satur Fe [12-57 %] 0.6 *LOW* (12/11/19 5:46 AM) 0.6 *LOW* (12/09/19 7:34 PM) A/G Ratio [0.7-1.6] 1.3 ng/mL (12/10/19 6:03 AM) AFP TM [0.0-11.0 ng/mL] 2.6 g/dL *LOW* (12/11/19 5:46 AM) 3.1 g/dL *LOW* (12/09/19 7:34 PM) Albumin Lvl [3.5-5.0 g/dL] 66 unit/L (12/11/19 5:46 AM) 84 unit/L (12/09/19 7:34 PM) Alk Phos [39-136 unit/L] 25 unit/L (12/11/19 5:46 AM) 32 unit/L (12/09/19 7:34 PM) ALT [0-65 unit/L] Negative *NA* (12/10/19 12:34 AM) U Amph Scr [Negative] 9.0 mEq/L *LOW* (12/19/19 5:38 AM) 9.9 mEq/L *LOW* (12/18/19 3:02 AM) 9.2 mEq/L *LOW* (12/14/19 6:32 AM) AGAP [10.0-20.0 mEq/L] 21 unit/L (12/11/19 5:46 AM) 27 unit/L (12/09/19 7:34 PM) AST [0-37 unit/L] 11 (12/11/19 5:46 AM) 10 (12/09/19 7:34 PM) B/C Ratio [6-25] Negative *NA* (12/10/19 12:34 AM) U Jennifer Scr [Negative] 1.1 % *HI* (12/17/19 3:11 AM) 0.5 % (12/11/19 5:46 AM) 0.2 % (12/10/19 6:03 AM) Basophils [0.0-1.0 %] Negative *NA* (12/10/19 12:34 AM) U Benzodiaz Scr [Negative] 9 mg/dL (12/19/19 5:38 AM) 10 mg/dL (12/18/19 3:02 AM) 8 mg/dL (12/14/19 6:32 AM) BUN [7-22 mg/dL] 9.0 mg/dL (12/19/19 5:38 AM) 8.8 mg/dL (12/18/19 3:02 AM) 9.7 mg/dL (12/14/19 6:32 AM) Calcium Lvl [8.5-10.5 mg/dL] 410.9 ng/mL *HI* (12/10/19 6:03 AM) CEA [0.0-3.0 ng/mL] 133 unit/L (12/09/19 7:34 PM) Total CK [12-191 unit/L] 107 mEq/L (12/19/19 5:38 AM) 105 mEq/L (12/18/19 3:02 AM) 105 mEq/L (12/14/19 6:32 AM) Chloride Lvl [95-109 mEq/L] 27 mEq/L (12/19/19 5:38 AM) 27 mEq/L (12/18/19 3:02 AM) 29 mEq/L (12/14/19 6:32 AM) CO2 [24-32 mEq/L] Negative *NA* (12/10/19 12:34 AM) U Cocaine Scr [Negative] 0.80 mg/dL (12/19/19 5:38 AM) 0.85 mg/dL (12/18/19 3:02 AM) 0.99 mg/dL (12/14/19 6:32 AM) Creatinine Lvl [0.50-1.40 mg/dL] 2.09 ug/mL FEU *NA* (12/09/19 7:34 PM) D-Dimer 3.7 % (12/17/19 3:11 AM) 2.0 % (12/11/19 5:46 AM) 0.1 % (12/09/19 7:34 PM) Eosinophils [0.0-4.0 %] 142 ng/mL (12/11/19 3:21 PM) Ferritin Lvl [22-275 ng/mL] 4.2 g/dL (12/11/19 5:46 AM) 5.2 g/dL *HI* (12/09/19 7:34 PM) Globulin [2.7-4.2 g/dL] 87 mg/dL (12/19/19 5:38 AM) 92 mg/dL (12/18/19 3:02 AM) 92 mg/dL (12/14/19 6:32 AM) Glucose Lvl [70-99 mg/dL] 42.9 % (12/19/19 5:38 AM) 41.8 % *LOW* (12/17/19 3:11 AM) 37.1 % *LOW* (12/11/19 5:46 AM) Hct [42.0-54.0 %] 13.9 g/dL *LOW* (12/19/19 5:38 AM) 13.7 g/dL *LOW* (12/17/19 3:11 AM) 12.1 g/dL *LOW* (12/11/19 5:46 AM) Hgb [14.0-18.0 g/dL] 6.1 % *HI* (12/10/19 6:03 AM) Hgb A1C [<=5.6 %] 1.13 (12/09/19 7:34 PM) INR [0.85-1.17] 28 ug/dl *LOW* (12/11/19 3:21 PM) Iron [45-160 ug/dl] 4.0 mEq/L (12/19/19 5:38 AM) 3.9 mEq/L (12/18/19 3:02 AM) 4.2 mEq/L (12/14/19 6:32 AM) Potassium Lvl [3.5-5.1 mEq/L] 1.2 mMol/L (12/09/19 7:34 PM) Lactic Acid Lvl [0.5-2.2 mMol/L] 329 unit/L *HI* (12/19/19 5:38 AM) 342 unit/L *HI* (12/18/19 3:02 AM) 336 unit/L *HI* (12/17/19 3:11 AM) LDH [98-192 unit/L] 22.6 % (12/17/19 3:11 AM) 9.7 % *LOW* (12/11/19 5:46 AM) 5.3 % *LOW* (12/10/19 6:03 AM) Lymphocytes [20.0-40.0 %] 28.4 pg (12/17/19 3:11 AM) 28.6 pg (12/11/19 5:46 AM) 27.9 pg (12/10/19 6:03 AM) MCH [27.0-31.0 pg] 32.8 g/dL (12/17/19 3:11 AM) 32.6 g/dL (12/11/19 5:46 AM) 32.0 g/dL (12/10/19 6:03 AM) MCHC [32.0-36.0 g/dL] 86.8 fL (12/17/19 3:11 AM) 87.6 fL (12/11/19 5:46 AM) 87.3 fL (12/10/19 6:03 AM) MCV [80.0-94.0 fL] 2.4 mg/dL (12/19/19 5:38 AM) 2.1 mg/dL (12/11/19 5:46 AM) 2.2 mg/dL (12/09/19 7:34 PM) Magnesium Lvl [1.8-2.4 mg/dL] 11.4 % (12/17/19 3:11 AM) 13.7 % *HI* (12/11/19 5:46 AM) 8.0 % (12/10/19 6:03 AM) Monocytes [2.0-12.0 %] 7.5 fL (12/17/19 3:11 AM) 8.0 fL (12/11/19 5:46 AM) 7.9 fL (12/10/19 6:03 AM) MPV [7.4-10.4 fL] 139 mEq/L (12/19/19 5:38 AM) 138 mEq/L (12/18/19 3:02 AM) 139 mEq/L (12/14/19 6:32 AM) Sodium Lvl [135-145 mEq/L] Negative *NA* (12/10/19 12:34 AM) U Opiate Scr [Negative] Negative *NA* (12/10/19 12:34 AM) U Phencyclidine Scr [Negative] 2.6 mg/dL (12/09/19 7:34 PM) Phosphorus [2.5-4.5 mg/dL] 416 K/CMM (12/17/19 3:11 AM) 318 K/CMM (12/11/19 5:46 AM) 308 K/CMM (12/10/19 6:03 AM) Platelet [133-450 K/CMM] 61.2 % (12/17/19 3:11 AM) 74.1 % (12/11/19 5:46 AM) 86.5 % *HI* (12/10/19 6:03 AM) Segs [45.0-75.0 %] 6.8 g/dL (12/11/19 5:46 AM) 8.3 g/dL (12/09/19 7:34 PM) Total Protein [6.4-8.4 g/dL] 14.6 seconds (12/09/19 7:34 PM) PT [12.0-14.7 seconds] 27.9 seconds (12/09/19 7:34 PM) PTT [22.9-35.8 seconds] Not Detected (12/09/19 10:51 PM) Coronavirus (COVID-19) DEBI [Not Detected] 4.81 M/CMM (12/17/19 3:11 AM) 4.24 M/CMM *LOW* (12/11/19 5:46 AM) 4.44 M/CMM *LOW* (12/10/19 6:03 AM) RBC [4.70-6.10 M/CMM] Normal (12/09/19 7:34 PM) RBC Morph [Normal] 15.1 % *HI* (12/17/19 3:11 AM) 15.0 % *HI* (12/11/19 5:46 AM) 14.9 % *HI* (12/10/19 6:03 AM) RDW [11.5-14.5 %] 0.6 mg/dL (12/11/19 5:46 AM) 1.0 mg/dL (12/09/19 7:34 PM) Bili Total [0.2-1.3 mg/dL] Negative *NA* (12/10/19 12:34 AM) U Cannab Scr [Negative] 344 ug/dl (12/11/19 3:21 PM) TIBC [228-428 ug/dl] <0.02 ng/mL (12/09/19 7:34 PM) Troponin-I [0.00-0.40 ng/mL] Occasional /HPF *NA* (12/10/19 12:34 AM) UA Bacteria [None Seen /HPF] Negative *NA* (12/10/19 12:34 AM) UA Bili [Negative] Negative (12/10/19 12:34 AM) UA Blood [Negative] Kimberly *NA* (12/10/19 12:34 AM) UA Color 287.00 mg/dL *NA* (12/10/19 12:34 AM) U Creatinine Negative mg/dL *NA* (12/10/19 12:34 AM) UA Glucose [Negative mg/dL] 18 /LPF *HI* (12/10/19 12:34 AM) UA Hyal Cast [0-2 /LPF] Negative mg/dL *NA* (12/10/19 12:34 AM) UA Ketones [Negative mg/dL] Negative (12/10/19 12:34 AM) UA Leuk Est [Negative] Negative (12/10/19 12:34 AM) UA Nitrite [Negative] 5.0 (12/10/19 12:34 AM) UA pH [5.0-8.0] 30 mg/dL *ABN* (12/10/19 12:34 AM) UA Protein [Negative mg/dL] 3 /HPF *HI* (12/10/19 12:34 AM) UA RBC [0-2 /HPF] 6 mEq/L *NA* (12/10/19 12:34 AM) U Sodium 1.021 (12/10/19 12:34 AM) UA Spec Grav [<=1.030] Occasional /LPF *NA* (12/10/19 12:34 AM) UA Sq Epi [Few /LPF] Slight *ABN* (12/10/19 12:34 AM) UA Turbidity [Clear] 2.0 mg/dL *HI* (12/10/19 12:34 AM) UA Urobilinogen [0.1-1.0 mg/dL] 1 /HPF (12/10/19 12:34 AM) UA WBC [0-5 /HPF] 316 ug/dl (12/11/19 3:21 PM) UIBC [110-370 ug/dl] 7.8 K/CMM (12/17/19 3:11 AM) 13.4 K/CMM *HI* (12/11/19 5:46 AM) 19.4 K/CMM *HI* (12/10/19 6:03 AM) WBC [3.7-10.4 K/CMM] 1Result Comment: The eGFR is calculated using the [...] from the National Kidney Disease Education Program ( NKDEP) which additionally recommends that when the eGFR is used in patients with extremes of body mass index for purposes of drug dosing, the eGFR should be mul tiplied by the estimated BMI. 2Result Comment: The eGFR is calculated using the [...] from the National Kidney Disease Education Program ( NKDEP) which additionally recommends that when the eGFR is used in patients with extremes of body mass index for purposes of drug dosing, the eGFR should be mul tiplied by the estimated BMI. 3Result Comment: The eGFR is calculated using the [...] from the National Kidney Disease Education Program ( NKDEP) which additionally recommends that when the eGFR is used in patients with extremes of body mass index for purposes of drug dosing, the eGFR should be mul tiplied by the estimated BMI. Microbiology Reports TEST: Culture: Aspirate/Body Fluid/Tissue STATUS: Auth (Verified) BODY SITE: SOURCE: Aspirate COLLECTED DATE/TIME: 12/13/19 10:28 AM FINAL REPORT No Growth STAIN REPORT No Wbc'S Or Organisms Seen TEST: Culture: Aspirate/Body Fluid/Tissue STATUS: Auth (Verified) BODY SITE: SOURCE: Aspirate COLLECTED DATE/TIME: 12/13/19 10:00 AM FINAL REPORT No Growth STAIN REPORT No Organisms Seen Few WBC's Immunizations No data available for this section Procedures No data available for this section Social History Social History Type Response Alcohol Never Substance Abuse Use: None. 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 All his questioned were answered. Addendum Patient seen and examined w [facility] resident. Agree with above findings, assessment, and plan. by Jessica, Metastatic CRC with liver m ets. PICC and plan chemo. Will need C- scope. Maya ROS: Vandromme Constitutional Symptoms: _x fever, x_ weight loss, _x weight gain, _x fatigue, x_ malaise on Eyes: _x diplopia, _x blur red vision, _x redness, _x discharge, _x loss of vision 12/19/2019 Ears, Nose, Mouth, Throat: _x dysphagia, _ x xodynophagia, _x otalgia, _x deafness, x_ 13:59 rhinorrhea Cardiovascular: _x chest pain, x_ SOB, x_ COLMENARES, _ x orthopnea, x_ PND, x_ poor exercise tolerance, _ palpitations Respiratory: _ same as CVS, x_ cough, _x hemoptysis Gastrointestinal: _x NVD, _x BPR, _x da rk stool, x_ constipation, x_ abdominal pain Genitourinary: x_ dysuria, x_ frequency , x_ urgency, _x nocturia, x_ incontinence Musculoskeletal: _x arthralgia, x_ myal gavin, x_ stiffness Integumentary (skin and/or breast): _x rash, x_ hives, x_ breast pain, x_ mass, x_ nipple dc Neurological: _x weakness, _x headache, _ x seizure, x_ dizziness, x_ tingling, x_ numbness Psychiatric: x_ anxiety, _x depression, _x insomnia Endocrine: x_ polyuria, x_ polydipsia, x_ fatigue, xx_ weight loss, x_ weight gain, _x cold or heat intolerance, _x palpitati ons Hematologic/Lymphatic: x_ bleeding, _x bruising, x_ edema, _x lumps (axilla groin neck) Allergic/Immunologic: _x rash, _x aller gies, _x fever, _x chills Extracted from: Title: Clinical Document Author: Carlyn Guillory Date: 12/19/19 Lemuel Progress Note - Daily [facility] Completed: November, 11:39 by Carlyn Guillory RM: [address], [address] P7TBOKS, [id number] (: 1960) M Attending: Vicente Alvarenga MDPhone: Service: Internal Medicine Reason for Admission: FEVER, HYPOTENSION, ELENITA, SINUS TACHYCARDIA, LUEKOCYTOS. Working DRG: Code status: None Specified=FULL CODECurrent diet: Isolation: No Isolation/Standard Precautions Allergies: No Known Allergies SUBJECTIVE no acute complaints anxious to go home OBJECTIVE 24hr Labs 12/18 0836 POC Performing LocatioSee Note Glucose MHS624 H 12/18 0538 Glucose Lvl87 BUN9 Creatinine Lvl0.80 Sodium Rvb565 Potassium Lvl4.0 Chloride Qst091 CO227 AGAP9.0 L Calcium Lvl9.0 eGFR99 XFN333 H Magnesium Lvl2.4 Hgb13.9 L Hct42.9 12/17 2149 POC Performing LocatioSee Note Glucose KHO421 H 12/17 1603 POC Performing LocatioSee Note Glucose POC94 [place] still necessary (Yes/No): Line still necessary (Yes/No): VitalsTmp(F)TwvgqWHUIOkS1AUL9 12/18 08:0097.365351/[id number]--- 12/18 04:3398.176347/712424--- 12/18 00:3898.162052/232089--- 12/17 20:0098.549762/[id number]--- 12/17 14:56----[id number]--- 24 Hr Tmax: 98.6F (37.00c) at 12/18 00:3 8Vital Signs are the last 5 in the past 48 hours. DateWt(kg)Wt(lb)Ht(cm)Ht(in)Method 45.46 320.65163.88 72.00Mea/Sta 12/08 (initial)145.46 320.00Estimated 82.88 72.00Stated I&ORecordInOutBal 2824hr Tot 360 0 360 4hr Tot 500 650 -150 Medications (26) Active Scheduled Meds (8): 12/10/19 allopurinol 300 mg PO Daily 12/12/19 amLODIPine 10 mg PO Daily 12/10/19 atorvastatin 40 mg PO Daily 12/13/19 cefTRIAXone + sterile water 20 mL 2 gm IVP TRVJ96A 240 ml/hr 12/10/19 enoxaparin 40 mg SUB-Q klocY42E 12/10/19 fenofibrate (fenofibrate 48 mg oral tablet) [...] abnormal imaging -liver bx with adenocarcinoma likely met s with colon primary 3. leukocytosis - improving 4. abnormal MRI abdomen findings of mult iple hepatic lesions suspicious for hepatic abscess s/p drainage of liver abscess on 12/12 with subsequent removal of ANA drain and liver bx done (cultures negative to date) 5. bacteremia PLAN: 1. cont residential IV abx; ID following 2. analgesia prn [...] have examined the patient with the Physician Time Signal Wirer and confirmed the essential components of history, physical examination, diagnosis and treatment plan. I agree with the patient's care as documented by the Physician Time Signal Wirer. Extracted from: Title: History and Physical Author: Marcela Álvarez MD Da te: 12/10/19 # Severe sepsis # Acute diverticulitis [...]
[2020-03-18] MEDS ORDERED: HYDROMORPHONE 1MG/1ML INJ ONE (13:22)
[2020-03-18 14:15] VITALS: BP 95/68
[2020-03-18 14:20] VITALS: BP 95/68
[2020-03-18] MEDS: PANTOPRAZOLE 40 MG 10ML VIAL IV SCH (15:09)
[2020-03-18] MEDS: SODIUM CHLORIDE 0.9% 1000ML 1,000 ML IV SCH ×2 (15:09→19:57)
[2020-03-18] MEDS ORDERED: DEXTROSE 50% SYRINGE 50 ML IV PRN (15:15)
--- NOTE | 2020-03-18 15:20 | Operative Report ---
DATE OF PROCEDURE: SURGEON: Denys Powell MD PREOPERATIVE DIAGNOSES: Obstructing colon carcinoma with massive liver metastasis, morbid obesity, hypertension, diabetes, high cholesterol, sleep apnea, glaucoma, history of thyroid disorder, hypertension. POSTOPERATIVE DIAGNOSES: Obstructing colon carcinoma with massive liver metastasis, morbid obesity, hypertension, diabetes, high cholesterol, sleep apnea, glaucoma, history of thyroid disorder, hypertension. PROCEDURE PERFORMED: Exploratory laparotomy. Rigid proctosigmoidoscopy followed by exploratory laparotomy, low anterior resection of the colon resection with primary hand-sewn anastomosis. AIR AND HYDRONIC BALANCING TECHNICIAN: 1. Isaiah Powell MD. 2. PAKO Norton. ESTIMATED BLOOD LOSS: 100 mL. DRAINS: None. COMPLICATIONS: None. INDICATION AND FINDINGS: The patient is a 59-year-old male with previously described multiple comorbidities who in November of 2019, presented to an emergency room with a septic episode secondary to liver abscesses. During that workup, the patient was found to have multiple abscesses that were treated with antibiotics of cefazolin completing the treatment as an outpatient at during that hospitalization for the liver abscesses and found to have a multiple med and proven by needle biopsy and a suspicious area in the sigmoid colon. This area was found to be an obstructing colon carcinoma by colonoscopy. The patient was then the referred to surgery for surgical treatment. A CT scan of the abdomen was repeated and did not show any further evidence of the abscesses. There were multiple liver mets and there was a sigmoid colon lesion. INTRAOPERATIVE FINDINGS: The patient had an obstructing distal sigmoid colon carcinoma, which was rather large and bulky, located in the distal sigmoid colon. Because of the extreme poor prognosis of the patient, We performed a sigmoid colon resection of the tumor with primary anastomosis, but this is basically a palliative resection to alleviate the obstruction. A hand-sewn two layer anastomosis was then performed. DESCRIPTION OF PROCEDURE: With the patient lying on the operative table in the supine position after administration of general anesthesia, he was placed in the candy canes and a rigid proctosigmoidoscopy was performed up to 20 cm. We did not see that a sigmoid colon cancer. After introduction of the rigid scope up to 20 cm. We then prepped and draped the patient for exploratory laparotomy. Prophylactic antibiotics were given with 2 g of Mefoxin. The abdomen was entered via midline incision. Upon entering the abdomen, we found the bulky tumor obstructing, located in the distal sigmoid colon. we went ahead and then mobilized the sigmoid colon along the white line of Toldt and selected the points of transection proximal and distally. The distal transection was above the peritoneal reflection and the proximal transection was just proximal to the tumour. After transecting the tumor both proximally and distally with application of Satinsky clamp proximally a AMANDA #75 stapler distally. Closed both proximal and distal lumens and then the blood supply to the mesentery. Then, there is a blood supply to the colon was held with a suture ligature with 0 silk for the larger distal branch of the inferior mesenteric artery and a combination also with the EnSeal electrocautery instrument. After we detached the tumor, a hand-sewn two layer anastomosis was created using 3-0 silk for the seromuscular layer and for the mucosa and submucosal layer, we used 3-0 Vicryl stitches. The bowel prep was adequate despite of the obstruction. After we did that, we irrigated the abdominal cavity. I palpated the rest of the colon so far as it was possible on a morbidly obese male, and I did not see any obvious tumors on palpation in the rest of the colon. The left lobe of the liver was completely replaced by tumor and the right lobe of the liver contained several large tumors also. After the sponge and instrument count was verified to be correct. After this, when fluid was clear, we proceeded with the abdominal wound closure. We used one Vicryl for the posterior sheath and peritoneum and we ran a #1 PDS along the anterior fascia, closing the wound satisfactory. We took great care to ascertain that we did not place any stitches through the small bowel as we were closing the abdominal cavity. We palpated the abdomen before closure and it appeared to be the bowel was clear. After we did that, then we closed the subcutaneous tissues in two layers using 0 chromics for the fat 2-0, Vicryl for the subcuticular plane and the skin was closed with combination of 2-0 silk and courtney. Sterile dressing was applied. The patient tolerated the procedure well, was taken to recovery room in stable condition. MD JAMISON Lema/ISABELLA /[id number] MTDAlly
[2020-03-18 15:22] VITALS: BP 95/68
[2020-03-18] MEDS: CEFOXITIN 1GM/0.9% NS 50ML 50 ML IV SCH ×2 (15:52→19:57)
[2020-03-18 16:00] VITALS: BP 106/75
[2020-03-18] MEDS ORDERED: MIDAZOLAM HCL 2 MG/2 ML VIAL ONE (19:03)
[2020-03-18] MEDS ORDERED: MORPHINE SULFATE INJ 10 MG/ML ONE (19:03)
[2020-03-18] MEDS ORDERED: PROPOFOL IV EMULSION 10 MG/ML 20 ML VIAL ONE (19:50)
[2020-03-18] MEDS ORDERED: ONDANSETRON HCL INJ 2MG/ML 2ML 2 MG/ML VIAL ONE (19:50)
[2020-03-18] MEDS ORDERED: KETOROLAC TROMETHAMINE 30 MG/ML VIAL ONE (19:50)
[2020-03-18] MEDS ORDERED: GLYCOPYRROLATE INJ 0.2 MG/ML VIAL ONE (19:50)
[2020-03-18] MEDS ORDERED: PHENYLEPHRINE HCL 1% 10 MG/ML VIAL ONE (19:50)
[2020-03-18] MEDS ORDERED: ROCURONIUM BROMIDE 10 MG/ML 5ML VIAL IV ONE (19:50)
[2020-03-18] MEDS ORDERED: CEFOXITIN SOD 1 GM VIAL ONE (19:50)
[2020-03-18] MEDS ORDERED: SUCCINYLCHOLINE CHLORIDE 20 MG/ML 10ML VIAL ONE (19:50)
[2020-03-18] MEDS ORDERED: NEOSTIGMINE 1 MG/ML 10ML VIAL ONE (19:50)
[2020-03-18] MEDS ORDERED: SEVOFLURANE INHAL SOLN 250 ML PEN BTL ONE (19:50)
[2020-03-18] MEDS ORDERED: LIDOCAINE HCL 2% LOCAL INJ 5 ML SDV VIAL INJ ONE (19:50)
[2020-03-18 19:58] VITALS: BP 118/70
[2020-03-18 20:00] VITALS: BP 118/70
[2020-03-19] VITALS (9 sets, daily range): BP systolic 114–133; BP diastolic 61–88
[2020-03-19] MEDS: HYDROMORPHONE 0.2MG/ML-SOD CHL 30ML PCA SYRINGE IV PRN ×2 (01:15→12:18)
[2020-03-19] MEDS: CEFOXITIN 1GM/0.9% NS 50ML 50 ML IV SCH ×4 (03:20→20:54)
[2020-03-19] MEDS: SODIUM CHLORIDE 0.9% 250ML IRRIG IR SCH ×6 (04:00→20:54)
[2020-03-19] MEDS: SODIUM CHLORIDE 0.9% 1000ML 1,000 ML IV SCH ×3 (04:38→21:02)
[2020-03-19] MEDS: INSULIN REGULAR, HUMAN 100 UNIT/1 ML 3ML VIAL SQ SCH ×4 (06:00→17:45)
[2020-03-19 07:17] LABS: BASOPHILS # (AUTO) 0.1 (0.0-0.1); BASOPHILS % 0.7 % (0.0-1.0); EOSINOPHILS # (AUTO) 0.1 (0.0-0.4); EOSINOPHILS % 1.5 % (0.0-6.0); HEMATOCRIT 41.7 % (38.2-49.6); HEMOGLOBIN 13.1 g/dL (14.0-18.0); LYMPHOCYTES # (AUTO) 1.2 (1.0-3.2); LYMPHOCYTES % 13.6 % (18.0-39.1); MEAN CORPUSCULAR HEMOGLOBIN 26.6 pg (28-32); MEAN CORPUSCULAR HGB CONC 31.4 g/dL (31-35); MEAN CORPUSCULAR VOLUME 84.8 fL (81-99); MONOCYTES # (AUTO) 1.1 (0.2-0.8); MONOCYTES % 11.9 % (4.4-11.3); NEUTROPHILS # (AUTO) 6.4 (2.1-6.9); NEUTROPHILS % 72.1 % (38.7-80.0); PLATELET COUNT 319 x10e3/uL (140-360); RED BLOOD COUNT 4.92 x10e6/uL (4.3-5.7); RED CELL DISTRIBUTION WIDTH 14.8 % (11.7-14.4)
[2020-03-19 07:37] LABS: BLOOD UREA NITROGEN 7 mg/dL (7-26); BUN/CREATININE RATIO 8 (6-25); CALCIUM 8.2 mg/dL (8.4-10.2); CARBON DIOXIDE 20 mmol/L (22-29); CHLORIDE 106 mmol/L (98-107); CREATININE, SERUM 0.83 mg/dL (0.72-1.25); EST GLOMERULAR FILTRATION RATE > 60 ML/MIN (60-); GLUCOSE 105 mg/dL (74-118); SODIUM 137 mmol/L (136-145)
--- NOTE | 2020-03-19 13:05 | Operative Report ---
DATE OF PROCEDURE: 03/18/2020 SURGEON: Denys Powell MD PREOPERATIVE DIAGNOSES: Colon carcinoma obstruction, multiple liver metastases, morbid obesity, hypertension, diabetes, hypercholesterolemia, history of thyroid disorder, sleep apnea, glaucoma. POSTOPERATIVE DIAGNOSES: Colon carcinoma obstruction, multiple liver metastases, morbid obesity, hypertension, diabetes, hypercholesterolemia, history of thyroid disorder, sleep apnea, glaucoma. DICTATION ENDS HERE. Denys Powell MD PJR/MODL /[id number]
[2020-03-19] MEDS ORDERED: ACETAMINOPHEN 1000 MG/100 ML IV PRN (14:30)
[2020-03-19] MEDS: PANTOPRAZOLE 40 MG 10ML VIAL IV SCH (15:44)
--- NOTE | 2020-03-19 19:10 | NUR ---
RECEIVED REPORT FROM PREVIOUS NURSE. CALL LIGHT WITHIN REACH. PATIENT IN BED.
[2020-03-20] VITALS (7 sets, daily range): BP systolic 116–153; BP diastolic 70–92
[2020-03-20] MEDS: SODIUM CHLORIDE 0.9% 250ML IRRIG IR SCH ×6 (02:43→20:00)
[2020-03-20] MEDS: CEFOXITIN 1GM/0.9% NS 50ML 50 ML IV SCH ×4 (02:43→21:07)
[2020-03-20] MEDS: HYDROMORPHONE 0.2MG/ML-SOD CHL 30ML PCA SYRINGE IV PRN ×2 (04:44→18:29)
[2020-03-20] MEDS: INSULIN REGULAR, HUMAN 100 UNIT/1 ML 3ML VIAL SQ SCH ×3 (06:00→11:52)
--- NOTE | 2020-03-20 07:07 | NUR ---
GAVE BEDSIDE SHIFT REPORT TO ONCOMING NURSE. PATIENT IN BED. CALL LIGHT WITHIN REACH. HOURLY ROUNDING PERFORMED. FRIEND DRAINING WELL
[2020-03-20 10:23] LABS: BASOPHILS # (AUTO) 0.1 (0.0-0.1); BASOPHILS % 0.7 % (0.0-1.0); EOSINOPHILS # (AUTO) 0.3 (0.0-0.4); EOSINOPHILS % 3.2 % (0.0-6.0); HEMATOCRIT 37.8 % (38.2-49.6); LYMPHOCYTES # (AUTO) 1.2 (1.0-3.2); LYMPHOCYTES % 13.1 % (18.0-39.1); MEAN CORPUSCULAR HGB CONC 31.7 g/dL (31-35); MEAN CORPUSCULAR VOLUME 85.1 fL (81-99); MONOCYTES # (AUTO) 1.2 (0.2-0.8); MONOCYTES % 12.8 % (4.4-11.3); NEUTROPHILS # (AUTO) 6.3 (2.1-6.9); NEUTROPHILS % 69.8 % (38.7-80.0); PLATELET COUNT 301 x10e3/uL (140-360); RED BLOOD COUNT 4.44 x10e6/uL (4.3-5.7); RED CELL DISTRIBUTION WIDTH 14.6 % (11.7-14.4)
[2020-03-20 10:37] LABS: ANION GAP 14.5 mmol/L (8-16); BLOOD UREA NITROGEN < 5 mg/dL (7-26); CALCIUM 8.2 mg/dL (8.4-10.2); CARBON DIOXIDE 20 mmol/L (22-29); CHLORIDE 105 mmol/L (98-107); CREATININE, SERUM 0.76 mg/dL (0.72-1.25); EST GLOMERULAR FILTRATION RATE > 60 ML/MIN (60-); GLUCOSE 83 mg/dL (74-118); POTASSIUM 3.5 mmol/L (3.5-5.1); SODIUM 136 mmol/L (136-145)
[2020-03-20 10:38] LABS: BUN/CREATININE RATIO 7 (6-25)
[2020-03-20] MEDS: SODIUM CHLORIDE 0.9% 1000ML 1,000 ML IV SCH ×2 (12:00→12:01)
[2020-03-20] MEDS: PANTOPRAZOLE 40 MG 10ML VIAL IV SCH (14:58)
[2020-03-21] VITALS (9 sets, daily range): BP systolic 132–149; BP diastolic 74–88
[2020-03-21] MEDS: SODIUM CHLORIDE 0.9% 1000ML 1,000 ML IV SCH ×4 (01:29→20:00)
[2020-03-21] MEDS: CEFOXITIN 1GM/0.9% NS 50ML 50 ML IV SCH ×4 (03:02→21:54)
[2020-03-21] MEDS: SODIUM CHLORIDE 0.9% 250ML IRRIG IR SCH ×7 (04:00→22:21)
[2020-03-21 06:07] LABS: BASOPHILS # (AUTO) 0.1 (0.0-0.1); BASOPHILS % 0.7 % (0.0-1.0); EOSINOPHILS # (AUTO) 0.5 (0.0-0.4); EOSINOPHILS % 5.1 % (0.0-6.0); HEMATOCRIT 37.1 % (38.2-49.6); HEMOGLOBIN 11.7 g/dL (14.0-18.0); LYMPHOCYTES % 11.5 % (18.0-39.1); MEAN CORPUSCULAR HEMOGLOBIN 26.7 pg (28-32); MEAN CORPUSCULAR HGB CONC 31.5 g/dL (31-35); MEAN CORPUSCULAR VOLUME 84.7 fL (81-99); MONOCYTES # (AUTO) 1.1 (0.2-0.8); MONOCYTES % 12.2 % (4.4-11.3); NEUTROPHILS # (AUTO) 6.4 (2.1-6.9); NEUTROPHILS % 70.2 % (38.7-80.0); PLATELET COUNT 336 x10e3/uL (140-360); RED BLOOD COUNT 4.38 x10e6/uL (4.3-5.7); RED CELL DISTRIBUTION WIDTH 14.4 % (11.7-14.4)
[2020-03-21 06:36] LABS: ANION GAP 15.6 mmol/L (8-16); BLOOD UREA NITROGEN 5 mg/dL (7-26); BUN/CREATININE RATIO 7 (6-25); CALCIUM 8.3 mg/dL (8.4-10.2); CARBON DIOXIDE 21 mmol/L (22-29); CHLORIDE 103 mmol/L (98-107); CREATININE, SERUM 0.73 mg/dL (0.72-1.25); EST GLOMERULAR FILTRATION RATE > 60 ML/MIN (60-); GLUCOSE 71 mg/dL (74-118); POTASSIUM 3.6 mmol/L (3.5-5.1); SODIUM 136 mmol/L (136-145)
[2020-03-21] MEDS: HYDROMORPHONE 0.2MG/ML-SOD CHL 30ML PCA SYRINGE IV PRN (10:48)
[2020-03-21] MEDS: PANTOPRAZOLE 40 MG 10ML VIAL IV SCH (14:46)
--- NOTE | 2020-03-21 19:15 | NUR ---
received report from day nurse. patient is resting comfortably in the bed. bed is in lowest position and call light is within reach. will continue to monitor patient.
[2020-03-21] MEDS ORDERED: BISACODYL 10 MG SUPP PR ONE ×2 (20:00→22:15)
[2020-03-22] VITALS (7 sets, daily range): BP systolic 131–165; BP diastolic 70–97
[2020-03-22] MEDS: CEFOXITIN 1GM/0.9% NS 50ML 50 ML IV SCH ×4 (02:59→20:35)
[2020-03-22] MEDS: SODIUM CHLORIDE 0.9% 1000ML 1,000 ML IV SCH ×3 (04:00→20:34)
[2020-03-22] MEDS: SODIUM CHLORIDE 0.9% 250ML IRRIG IR SCH ×6 (04:46→23:08)
[2020-03-22] MEDS: PANTOPRAZOLE 40 MG 10ML VIAL IV SCH (15:24)
[2020-03-22] MEDS ORDERED: BISACODYL 10 MG SUPP PR ONE (18:00)
[2020-03-23] VITALS (8 sets, daily range): BP systolic 121–142; BP diastolic 79–93
[2020-03-23] MEDS: CEFOXITIN 1GM/0.9% NS 50ML 50 ML IV SCH ×4 (02:47→21:23)
[2020-03-23] MEDS: SODIUM CHLORIDE 0.9% 250ML IRRIG IR SCH ×6 (03:32→23:40)
[2020-03-23] MEDS: SODIUM CHLORIDE 0.9% 1000ML 1,000 ML IV SCH ×2 (04:27→13:24)
--- NOTE | 2020-03-23 08:25 | NUR ---
RECEIVED REPORT FROM HOUSTON MORGAN. PT DENIES NEEDS AT THIS TIME.
[2020-03-23] MEDS: HYDROMORPHONE 1MG/1ML INJ IV PRN ×2 (13:24→21:41)
[2020-03-23] MEDS: CEPACOL SORE THROAT LOZENGES PO PRN (13:24)
[2020-03-23] MEDS: PANTOPRAZOLE 40 MG 10ML VIAL IV SCH (15:22)
--- NOTE | 2020-03-23 19:45 | NUR ---
BEDSIDE SHIFT REPORT RECEIVED FROM DAY RN. PT IS ALERT AND ORIENTED X3. RESPIRATIONS ARE EVEN AND UNLABORED. TELE ON. ABDOMINAL DRESSING DRY AND INTACT ABD BINDER ON. 20 G RFA SL. PT VOIDING WITHOUT DIFFICULTY. CALL LIGHT WITHIN REACH. BED IN LOW POSITION. PT TOLERATING FULL LIQUID DIET WELL.
[2020-03-24] VITALS (8 sets, daily range): BP systolic 126–140; BP diastolic 71–91
[2020-03-24] MEDS: CEFOXITIN 1GM/0.9% NS 50ML 50 ML IV SCH ×4 (03:26→21:50)
[2020-03-24] MEDS: SODIUM CHLORIDE 0.9% 250ML IRRIG IR SCH ×6 (03:45→23:42)
--- NOTE | 2020-03-24 07:00 | NUR ---
BEDSIDE SHIFT REPORT RECEIVED FROM DISPLAY SPECIALIST NURSE. PT DENIES NEEDS AT THIS TIME.
[2020-03-24] MEDS: CEPACOL SORE THROAT LOZENGES PO PRN ×2 (13:46→21:00)
--- NOTE | 2020-03-24 15:17 | NUR ---
Nutrition Screen Note RD Recommendation for Physician: - As feasible, continue to advance diet as tolerated to GI Soft Plan of Care: RD following, monitoring for tolerance and adequacy Nutrition reason for involvement: LOS Primary Diagnose(s): metastatic colon cancer with obstruction PMH: colon carcinoma with obstruction, multiple liver mets, morbid obesity, HTN, DM, hypercholesterolemia, thyroid disorder, sleep apnea Ht: 72 in Wt: 299.38 lb BMI: 40.6 kg/m2 IBW: [address] Assessment: (03/24/20) 59 YOM admitted for metastatic colon cancer with obstruction. Pt seen today for LOS. Pt s/p GI surgery, diet resumed and advanced to full liquids yesterday. Pt sitting up in bed with abdominal binder on at time of visit eating lunch. Pt reports that he was eating "better" and eating less since November and had intentional wt loss of 30 lbs in 3 months. 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 Pt denies any GI distress. Pt tolerating full liquids with good intake. Pt with no questions or concerns at time of visit. Chart reviewed. Labs and meds reviewed. Will continue to monitor. Current Diet: full liquids Malnutrition Evaluation (03/24/20) The patient does not meet criteria for a specified degree of malnutrition at this time. Will re-evaluate at follow-up as appropriate. Diet Education Needs Assessment: Diet education not indicated. Diet tolerance: tolerating full liquids Nutrition Care Level: low Signed: Martha Alvarez RD, LD, [facility]
[2020-03-24] MEDS: PANTOPRAZOLE 40 MG 10ML VIAL IV SCH (16:24)
--- NOTE | 2020-03-24 19:15 | NUR ---
Patient visited in room during nursing rounds. Patient alert and oriented x3. Ambulatory in room prn. S/P Proctosidmoidoscopy, Exploratory Laparotomy, Sigmoid Colon Resection on 03/18/20. Surgical site on lower abdomen covered with surgical dressing and wrapped with abd binder (C/D/I). On IVF (NS at [facility]) and scheduled IV antibiotics. Call valero within reach. Will monitor pt closely.
[2020-03-25] VITALS: BP 132/78
[2020-03-25] MEDS: CEFOXITIN 1GM/0.9% NS 50ML 50 ML IV SCH ×2 (03:00→10:11)
[2020-03-25] MEDS: SODIUM CHLORIDE 0.9% 250ML IRRIG IR SCH ×2 (03:53→06:41)
[2020-03-25 04:00] VITALS: BP 134/86
[2020-03-25 08:00] VITALS: BP 133/84
[2020-03-25 11:50] VITALS: BP 124/83
[2020-03-25 12:26] VITALS: BP 124/83
[2020-03-25] MEDS ORDERED: TYLENOL # 31 EA PO (12:56)
--- NOTE | 2020-03-25 15:13 | Discharge Summary ---
HISTORY OF PRESENT ILLNESS: The patient is a very pleasant, but unfortunate, 59-year-old, morbidly obese male, admitted for colon resection because of an obstructing sigmoid colon cancer. The patient's past medical history was significant for glaucoma, sleep apnea, thyroid disease, high blood pressure, diverticulitis, diabetes, and sleep apnea. He had no previous major surgeries. PHYSICAL EXAMINATION: GENERAL: Reveals a morbidly obese, 59-year-old male, who complained of some intermittent crampy abdominal pains. VITAL SIGNS: Stable. ABDOMEN: Obese, protuberant. There were no peritoneal signs. HOSPITALIZATION COURSE: Following admission, the patient underwent low-anterior resection of the colon with hand-sewn anastomosis to the upper rectum above the peritoneal reflection. Postoperative course was unremarkable. The patient was discharged home in stable condition on March 25. He was tolerating a regular diet well. He was passing gas and had a small bowel movement. His wound was healing and clean. Discharge medications were Tylenol No. 3, total of 40. He was given instructions and he will be followed up in my office 8 days for a wound check and to possibly remove some of the courtney at that time. MD JAMISON Lema/ISABELLA /[id number]
== END 2020-03-25 13:33 | disposition home or self-care (01) | DRG 330 ==
LOC: OR 05:52 → PACU V 11:52 → IMCU 14:14 → MED/SURG 03-19 18:36
PROVIDERS: ADMIT Surgery; ATTEND Surgery
PROC: 0DJD8ZZ Inspection of Lower Intestinal Tract, Via Natural or Artificial Opening Endoscopic (ICD-10-PCS; 2020-03-18)
PROC: 0DBP0ZZ Excision of Rectum, Open Approach (ICD-10-PCS; principal; 2020-03-18 07:26)
PROC: 0DBN0ZZ Excision of Sigmoid Colon, Open Approach (ICD-10-PCS; 2020-03-18 07:26)
DX: C18.7 Malignant neoplasm of sigmoid colon (principal); C78.7 Secondary malignant neoplasm of liver and intrahepatic bile duct; Z68.41 Body mass index [BMI] 40.0-44.9, adult; K57.92 Diverticulitis of intestine, part unspecified, without perforation or abscess without bleeding; E66.01 Morbid (severe) obesity due to excess calories; G47.30 Sleep apnea, unspecified; I10 Essential (primary) hypertension; E11.9 Type 2 diabetes mellitus without complications; Z80.0 Family history of malignant neoplasm of digestive organs; Z82.49 Family history of ischemic heart disease and other diseases of the circulatory system; Z84.89 Family history of other specified conditions; E78.00 Pure hypercholesterolemia, unspecified; H40.9 Unspecified glaucoma; Z11.59 Encounter for screening for other viral diseases; E07.9 Disorder of thyroid, unspecified; Z79.84 Long term (current) use of oral hypoglycemic drugs
CPT/HCPCS: 36415; 80048; 82948; 85025; 86850; 86900; 88307; 88309; 94660; 96361; J0330; J0694; J1170; J1885; J2001; J2250; J2270; J2370; J2405; J2710; J3010; J7030; U0002

== ENCOUNTER → 2020-04-24 | Day surgery (SDC) | payer OTHER ==
[2020-04-21 11:07] LABS: BASOPHILS # (AUTO) 0.1 (0.0-0.1); BASOPHILS % 1.3 % (0.0-1.0); EOSINOPHILS # (AUTO) 0.4 (0.0-0.4); EOSINOPHILS % 6.1 % (0.0-6.0); HEMATOCRIT 46.2 % (38.2-49.6); HEMOGLOBIN 14.7 g/dL (14.0-18.0); LYMPHOCYTES # (AUTO) 1.6 (1.0-3.2); LYMPHOCYTES % 25.7 % (18.0-39.1); MEAN CORPUSCULAR HEMOGLOBIN 26.6 pg (28-32); MEAN CORPUSCULAR HGB CONC 31.8 g/dL (31-35); MEAN CORPUSCULAR VOLUME 83.5 fL (81-99); MONOCYTES # (AUTO) 0.6 (0.2-0.8); MONOCYTES % 9.6 % (4.4-11.3); NEUTROPHILS # (AUTO) 3.6 (2.1-6.9); NEUTROPHILS % 57.1 % (38.7-80.0); PLATELET COUNT 350 x10e3/uL (140-360); RED BLOOD COUNT 5.53 x10e6/uL (4.3-5.7); RED CELL DISTRIBUTION WIDTH 15.3 % (11.7-14.4)
[2020-04-21 11:22] LABS: ANION GAP 16.2 mmol/L (8-16); BLOOD UREA NITROGEN 6 mg/dL (7-26); BUN/CREATININE RATIO 6 (6-25); CALCIUM 9.3 mg/dL (8.4-10.2); CARBON DIOXIDE 22 mmol/L (22-29); CHLORIDE 105 mmol/L (98-107); CREATININE, SERUM 0.97 mg/dL (0.72-1.25); EST GLOMERULAR FILTRATION RATE > 60 ML/MIN (60-); GLUCOSE 96 mg/dL (74-118); POTASSIUM 4.2 mmol/L (3.5-5.1); SODIUM 139 mmol/L (136-145)
[~2020-04-24] MED LIST changes: +ALLOPURINOL300 MG PO; +BACTRIM DS TAB1 EACH PO; +CEFAZOLIN SOD 1 GM/NS 50ML 100 ML IV ONE; +DEXAMETHASONE SOD PHOS INJ 4 MG/ML VIAL ONE; +FENTANYL CITRATE/PF 100MCG/2 ML INJ ONE; +HEPARIN SOD (PORCINE) 5,000 UNIT/ML VIAL ONE; +HYDROGEN PEROXIDE 120 ML BTL ONE; +LIDOCAINE HCL 2% JELLY 5 ML TUBE ONE; +LIDOCAINE HCL 2% LOCAL INJ 5 ML SDV VIAL INJ ONE; +MIDAZOLAM HCL 2 MG/2 ML VIAL ONE; +ONDANSETRON HCL INJ 2MG/ML 2ML 2 MG/ML VIAL ONE; +PROPOFOL IV EMULSION 10 MG/ML 20 ML VIAL ONE; +SEVOFLURANE INHAL SOLN 250 ML PEN BTL ONE; +SODIUM CHLORIDE 0.9% 500ML 500 ML ONE; +TYLENOL # 31 EA PO; +VANCOMYCIN HCL 1 GM VIAL ONE
[2020-04-24 15:25] VITALS: BP 137/71
== END | disposition home or self-care (01) ==
LOC: OR 07:39
PROVIDERS: ATTEND Surgery
DX: C18.9 Malignant neoplasm of colon, unspecified (principal); C78.7 Secondary malignant neoplasm of liver and intrahepatic bile duct; E66.01 Morbid (severe) obesity due to excess calories; G47.33 Obstructive sleep apnea (adult) (pediatric); E03.9 Hypothyroidism, unspecified; E11.9 Type 2 diabetes mellitus without complications; K21.9 Gastro-esophageal reflux disease without esophagitis; Z79.84 Long term (current) use of oral hypoglycemic drugs
CPT/HCPCS: 36415 ×2; 36561; 71045; 77001; 80048; 82948; 85025; 93005; C1751; J0690; J1100; J1644; J2001 ×2; J2250; J2405; J2704; J3010; J3370; J7040; U0002